=== PATIENT | male | born 1970 ===

== ENCOUNTER 2017-09-28 15:38 | Inpatient (IN) | payer MEDICAID ==
[2017-09-28 15:38] VITALS: BMI 23.8
[2017-09-28] MEDS ORDERED: Sodium Chloride 0.9% 1,000 ML IV STA ×2 (16:55→19:12)
[2017-09-28] MEDS ORDERED: diaZEpam 10 mg/2 ml Inj IVP STA (16:55)
--- NOTE | 2017-09-28 17:04 | ED PDOC ---
HPI: Back Time Seen by Provider: 09/28/17 16:20 Chief Complaint (Nursing): Back Pain Chief Complaint (Provider): Back Pain History Per: Patient History/Exam Limitations: no limitations Onset/Duration Of Symptoms: Days (x9) Current Symptoms Are (Timing): Still Present Additional Complaint(s): Cesar Hatfield is a 47 year old male who presents to the ED complaining of back pain ongoing since last Wednesday. Patient states his father past away last week and he attended the . He states pain was exacerbated after carrying his father's casket. Patient was seen yesterday at [facility] [place] and was treated with valium and motrin but this has not helped. Patient states that ED provider wanted to admit him yesterday at [facility] [place] but he declined. Patient states pain radiates down right leg but he has no bowel or bladder dysfunction. Patient states years ago he was told he had lumbar herniated discs but he has not had chronic issues with his low back. Patient also admits to taking percocet that he had left over from left knee surgery last year but this did not help either. PMD: Ariadna Moreland MD Past Medical History Reviewed: Historical Data, Nursing Documentation, Vital Signs Vital Signs: Last Vital Signs Temp 98.0 F 09/28/17 15:50 Pulse 95 H 09/28/17 15:50 Resp 16 09/28/17 15:50 BP 153/99 H 09/28/17 15:50 Pulse Ox 100 09/28/17 15:50 - Medical History PMH: Back Problems, Depression (no longer), Gastrointestinal Ulcer - Surgical History Surgical History: Endoscopy Other surgeries: left knee surgery - Family History Family History: States: No Known Family Hx - Social History Current smoker - smoking cessation education provided: No Alcohol: None Drugs: Denies - Immunization History Hx Tetanus Toxoid Vaccination: No Hx Influenza Vaccination: No Hx Pneumococcal Vaccination: No - Home Medications Home Medications: Ambulatory Orders Medication Instructions Recorded Hydrocodone/Acetaminophen [Vicodin 1 tab PO QID #20 tab 08/01/15 Es 300 mg-7.5 mg] Acetaminophen [Tylenol 325mg tab] 650 mg PO Q4H PRN #0 tab 09/16/16 Famotidine [Pepcid] 40 mg PO DAILY #7 tablet 09/16/16 Gabapentin [Neurontin] 300 mg PO TID #90 cap 09/16/16 Hydrocortisone 1% Cream [Cortizone 0 gm TOP BID PRN #0 tube 09/16/16 1% Cream] Menthol/Methyl Salicylate [BenGay] 0 gm TOP QID PRN #0 tube 09/16/16 Methylprednisolone [Medrol Dose See Taper PO DAILY #21 mg 09/16/16 Pack (21 tabs)] Naproxen [Anaprox DS] 550 mg PO BID tab 09/16/16 Polyethylene Glycol 3350 [Miralax] 17 gm PO DAILY packet 09/16/16 - Allergies Allergies/Adverse Reactions: Allergies Allergy/AdvReac Type Severity Reaction Status Date / Time No Known Allergies Allergy Verified 05/11/15 13:24 Review of Systems ROS Statement: Except As Marked, All Systems Reviewed And Found Negative Gastrointestinal: Negative for: Vomiting Musculoskeletal: Positive for: Back Pain (Lower, with radiation to right leg) Neurological: Positive for: Numbness (Right leg) Physical Exam - Reviewed Nursing Documentation Reviewed: Yes Vital Signs Reviewed: Yes - Physical Exam Appears: Positive for: Well, Non-toxic, No Acute Distress Head Exam: Positive for: ATRAUMATIC, NORMAL INSPECTION, NORMOCEPHALIC Skin: Positive for: Normal Color. Negative for: Rash Eye Exam: Positive for: Normal appearance Neck: Positive for: Normal, Painless ROM Cardiovascular/Chest: Positive for: Regular Rate, Rhythm Respiratory: Positive for: Normal Breath Sounds Gastrointestinal/Abdominal: Positive for: Soft. Negative for: Tenderness, Distended, Guarding, Rebound Back: Positive for: Muscle Spasm (Diffuse muscle spasms to lower lumbar region) , Other (unable to peform straight leg raise on right or left leg) Extremity: Positive for: Normal ROM Neurologic/Psych: Positive for: Alert, Oriented - Laboratory Results Result Diagrams: 09/28/17 18:22 09/28/17 18:22 - ECG O2 Sat by Pulse Oximetry: 100 (RA) Pulse Ox Interpretation: Normal - Other Rad CT Lumbar spine X-Ray: Read By Radiologist X-Ray Interpretation: no acute finding Medical Decision Making Medical Decision Making: Time: 16:56 Impression: 47 year old male with severe lower back pain Rx history reviewed, no history of narcotic rx filled on [facility] [employer] [facility]. Initial Plan: --CT Lumbar spine w/o contrast --BMP --CBC w/ differential --Sodium Chloride 0.9% 1,000 ml IV --1 mg IV dilaudid --Toradol 30 mg IV --SOLU-Medrol 125 mg IVP --Reevaluation CT: no acute finding 6:40 pm: Patient feels somewhat better after IV medications given. CT was read as normal. Patient tried to get up out of bed and cannot put any weight on right leg, when he tries to move he complains of persistent severe pain. Additional 1 mg IV Dilaudid ordered along with 5 mg oral Valium tablet. Scribe Attestation: Documented by Enmanuel Hough, acting as a scribe for Jennifer Telles PA-C Provider Scribe Attestation: All medical record entries made by the Scribe were at my direction and personally dictated by me. I have reviewed the chart and agree that the record accurately reflects my personal performance of the history, physical exam, medical decision making, and the department course for this patient. I have also personally directed, reviewed, and agree with the discharge instructions and disposition. Disposition - Clinical Impression Clinical Impression: Intractable back pain, Impaired ambulation - Patient ED Disposition Is Patient to be Admitted: Transfer of Care - Disposition Disposition: Transfer of Care Disposition Time: 20:00 Condition: FAIR Forms: BTR (Burmese) Patient Signed Over To: Stefanie Farias Handoff Comments: signed out pending re-evaluation and final disposition Results - Lab Results Lab Results: 09/28/17 09/28/17 18:22 18:22 WBC 6.0 RBC 4.40 Hgb 14.0 Hct 40.5 MCV 92.1 MCH 31.9 H MCHC 34.6 RDW 13.3 Plt Count 260 MPV 6.8 L Neut % (Auto) 70.6 Lymph % (Auto) 21.0 Carbon % (Auto) 5.4 Eos % (Auto) 1.8 Baso % (Auto) 1.2 Neut # 4.2 Lymph # 1.3 Carbon # 0.3 Eos # 0.1 Baso # 0.1 Sodium 143 Potassium 3.8 Chloride 107 Carbon Dioxide 27 Anion Gap 13 BUN 16 Creatinine 1.0 Est GFR ( Amer) > 60 Est GFR (Non-Af Amer) > 60 Random Glucose 94 Calcium 8.8
[2017-09-28] MEDS ORDERED: HYDROmorphone 0.5 mg/0.5 ml ISec IVP STA (17:16)
[2017-09-28] MEDS ORDERED: HYDROmorphone 0.5 mg/0.5 ml ISec ONE (17:18)
[2017-09-28 18:27] LABS: BASO # 0.1 K/uL (0.0-0.2); BASO % 1.2 % (0.0-2.0); EOS # 0.1 K/uL (0.0-0.7); EOS % 1.8 % (0.0-4.0); HEMATOCRIT 40.5 % (35.0-51.0); LYMPH # 1.3 K/uL (1.0-4.3); MEAN CELL VOLUME 92.1 fl (80.0-94.0); MEAN CORPUSCULAR HEMOGLOBIN 31.9 pg (27.0-31.0); MEAN CORPUSCULAR HGB CONC 34.6 g/dL (33.0-37.0); MEAN PLATELET VOLUME 6.8 fl (7.2-11.7); MONO # 0.3 K/uL (0.0-0.8); MONO % 5.4 % (0.0-10.0); NEUT # 4.2 K/uL (1.8-7.0); NEUT % 70.6 % (50.0-75.0); NRBC % 0.2 % (0.0-0.0); RED CELL DISTRIBUTION WIDTH 13.3 % (11.5-14.5)
--- NOTE | 2017-09-28 18:32 | CT ---
CT lumbar spine without IV contrast Indication: Severe low back pain, cannot walk Comparison: None available Technique: Noncontrast axial images of the lumbar spine were provided. Sagittal and coronal reformatted images were generated and reviewed. This CT exam was performed using 1 or more of the falling dose reduction techniques: Automated exposure control, adjustment of the MAA and/or kV according to patient size, and/or use of iterative reconstruction technique. Total exam DLP: 384.21 MGy-cm Findings: Vertebral body heights appear within normal limits. Alignment appears satisfactory. No acute fracture or subluxation identified. Paraspinal soft tissues appear unremarkable. Limited visualization of the intra-abdominal and intrapelvic contents appear unremarkable. Impression: No acute fracture or subluxation identified. If pain persists, suggest MRI for further evaluation.
[2017-09-28 18:50] LABS: BLOOD UREA NITROGEN 16 mg/dl (9-20); CALCIUM 8.8 mg/dL (8.4-10.2); CARBON DIOXIDE 27 mmol/L (22-30); CHLORIDE 107 mmol/L (98-107); GFR AFRICAN-AMERICAN > 60; GLUCOSE,RANDOM 94 mg/dL (75-110); POTASSIUM 3.8 MMOL/L (3.6-5.0); SODIUM 143 mmol/l (132-148)
--- NOTE | 2017-09-28 21:34 | ED PDOC ---
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 Case discussed with Dr. Garcia, Hospitalist on-call, for placement in observation for intractable back pain. Disposition - Clinical Impression Clinical Impression: Intractable back pain, Impaired ambulation - POA Present On Arrival: None - Disposition Disposition: Hospitalized as Observation Patient Disposition Time: 21:45 Condition: FAIR
[2017-09-28] MEDS ORDERED: Oxycodone/Acetaminophen 5/325 mg Tab PO PRN (21:41)
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
[2017-09-29] MEDS: Enoxaparin 40 mg Syringe SC SCH (08:44)
[2017-09-29] MEDS ORDERED: Pneumococcal 23-Valent Vaccine IM ONE (09:00)
[2017-09-29] MEDS ORDERED: Influenza Vaccine 18yr & older 0.5 ML/45 MCG SYR IM ONE (09:00)
--- NOTE | 2017-09-29 16:36 | CP.PCM.PN ---
Subjective - Date & Time of Evaluation Date of Evaluation: 09/29/17 Time of Evaluation: 13:00 - Subjective Subjective: Patient seen and examined bedside. Complaining of severe lower back pain radiating to his right thigh and groin area , unable to stand up , lift his legs against gravity and walk No urinary or bowel incontinence, no saddle paresthesia With decreased power to lower extremities due to pain Objective - Vital Signs/Intake and Output Vital Signs (last 24 hours): Temp Pulse Resp BP Pulse Ox 97.2 F L 76 18 122/78 95 09/29/17 16:32 09/29/17 16:32 09/29/17 16:32 09/29/17 16:32 09/29/17 16:32 - Medications Medications: Current Medications Acetaminophen (Tylenol 325mg Tab) 650 mg PO Q6 PRN PRN Reason: Pain, Mild (1-3) Cyclobenzaprine HCl (Flexeril) 10 mg PO TID PRN PRN Reason: Muscle spasm Last Admin: 09/29/17 08:47 Dose: 10 mg Enoxaparin Sodium (Lovenox) 40 mg SC DAILY ROSALINO PRN Reason: Protocol Last Admin: 09/29/17 08:44 Dose: 40 mg Ketorolac Tromethamine (Toradol) 30 mg IVP Q6 PRN PRN Reason: Pain, severe (8-10) Last Admin: 09/29/17 07:44 Dose: 30 mg Morphine Sulfate (Morphine) 2 mg IVP Q4 PRN PRN Reason: Pain, severe (8-10) Oxycodone/Acetaminophen (Percocet 5/325 Mg Tab) 1 tab PO Q4 PRN PRN Reason: Pain, moderate (4-7) Stop: 10/01/17 21:42 Last Admin: 09/29/17 13:38 Dose: 1 tab - Labs Labs: 09/28/17 18:22 09/28/17 18:22 - Constitutional Appears: Non-toxic, Other (with lower back pain) - Head Exam Head Exam: ATRAUMATIC, NORMAL INSPECTION, NORMOCEPHALIC - Eye Exam Eye Exam: EOMI, Normal appearance, PERRL Pupil Exam: NORMAL ACCOMODATION - ENT Exam ENT Exam: Mucous Membranes Moist, Normal Exam - Neck Exam Neck Exam: Full ROM, Normal Inspection - Respiratory Exam Respiratory Exam: Clear to Ausculation Bilateral, NORMAL BREATHING PATTERN. absent: Rales, Rhonchi, Wheezes - Cardiovascular Exam Cardiovascular Exam: REGULAR RHYTHM, RRR, +S1, +S2. absent: JVD - GI/Abdominal Exam GI & Abdominal Exam: Soft, Normal Bowel Sounds. absent: Distended, Guarding, Tenderness, Rebound - Rectal Exam Rectal Exam: Deferred - Extremities Exam Extremities Exam: Normal Capillary Refill, Normal Inspection. absent: Joint Swelling, Pedal Edema - Back Exam Back Exam: NORMAL INSPECTION - Neurological Exam Neurological Exam: Alert, Awake, CN II-XII Intact, Oriented x3 Additional comments: unable to lift his extremities against gravity, power decreased bilaterally - Psychiatric Exam Psychiatric exam: Normal Affect, Normal Mood - Skin Skin Exam: Dry, Intact, Normal Color, Warm Assessment and Plan - Assessment and Plan (Free Text) Assessment: 47 y/o male with a history of sarcoidosis and herniated discs/sciatica came in with intractable back pain. He states that his back pain started last week when he was walking to his car. Denies any trauma or exertion prior to onset of pain. Pain started getting progressively worse. Later last week he went to [place] for his father's where he had to carry the casket and put it into the hearse, after which pain became significantly worse. Today his pain was so bad that he was unable to ambulate, so he came to the hospital. He denies any bowel/ bladder incontinence or retention, denies fevers, denies acute focal weakness; all his difficulty moving is pain related. Patient denies any history of IVDU. Patient tried to take valium, motrin, and percocet, but none of these helped. No positions appears to help. CT lumbar spine showed no acute pathology Patient with persistent intractable lower back pain unable to ambulate 1. Intractable back pain patient unabl eto ambulate due to espinal Will order MRI lower back and painmanagement consult Continue Flexeril , narcotics for pain control PT consult appreciated . Patient unable to participate due to pain 2. DVT prophylaxis lovenox
--- NOTE | 2017-09-29 18:05 | CARD ---
APPROVED REPORT EKG Measurement Heart [id number] <Conclusion> Normal sinus rhythm Normal ECG
--- NOTE | 2017-09-29 18:22 | MRI ---
PROCEDURE: MR LUMBAR SPINE WITHOUT CONTRAST HISTORY: intractable lower back pain with weakness COMPARISON: CT lumbar spine from 09/28/2017. TECHNIQUE: Multiecho multiplanar sequences were performed through the lumbar spine without the use of intravenous contrast. FINDINGS: There is normal alignment of the lumbar vertebral bodies. Lumbar lordosis is maintained. There is no acute fracture, spondylolysis or spondylolisthesis. Bone marrow signal is within normal limits. The conus medullaris terminates at a normal level and the nerve roots of cauda equina are normal. 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 T12-L1: No disc herniation, spinal canal stenosis or neural foraminal narrowing. L1-2: No disc herniation, spinal canal stenosis or neural foraminal narrowing. L2-3: No disc herniation, spinal canal stenosis or neural foraminal narrowing. L3-4: Wake L4-5: Minimal posterior disc bulge and mild bilateral facet arthropathy without neural foraminal or spinal canal stenosis. L5-S1: Broad-based central disc protrusion indents the ventral thecal sac without spinal canal stenosis. No neural foraminal stenosis. OTHER FINDINGS: The paraspinous soft tissues and imaged portion of the retroperitoneum are within normal limits. IMPRESSION: No acute fracture, spondylolysis or spondylolisthesis. Broad-based central disc protrusion indents the ventral thecal sac without central spinal canal stenosis. No neural foraminal stenosis.
[2017-09-29] MEDS ORDERED: HYDROmorphone 1 mg/ml ISec IVP PRN (19:02)
--- NOTE | 2017-09-29 22:26 | CP.PCM.PN ---
Subjective - Date & Time of Evaluation Date of Evaluation: 09/29/17 Time of Evaluation: 22:23 - Subjective Subjective: reviewed MRI and CT Minimal disc bulge at L5/S1 not surgical case at this time suggest coarse of conservative therapy including PT, pain managment and not- narcotic analgesics. If this fails he should follow up as outpt, but MRI appearance is such that I would doubt surgery would help resolve his condition even if he fails conservative measures Objective - Vital Signs/Intake and Output Vital Signs (last 24 hours): Temp Pulse Resp BP Pulse Ox 97.2 F L 76 18 122/78 95 09/29/17 16:32 09/29/17 16:32 09/29/17 16:32 09/29/17 16:32 09/29/17 16:32 - Medications Medications: Current Medications Acetaminophen (Tylenol 325mg Tab) 650 mg PO Q6 PRN PRN Reason: Pain, Mild (1-3) Cyclobenzaprine HCl (Flexeril) 10 mg PO TID PRN PRN Reason: Muscle spasm Last Admin: 09/29/17 18:27 Dose: 10 mg Enoxaparin Sodium (Lovenox) 40 mg SC DAILY ROSALINO PRN Reason: Protocol Last Admin: 09/29/17 08:44 Dose: 40 mg Hydromorphone HCl (Dilaudid) 1 mg IVP Q4 PRN PRN Reason: Pain, severe (8-10) Last Admin: 09/29/17 21:14 Dose: 1 mg Ketorolac Tromethamine (Toradol) 30 mg IVP Q6 PRN PRN Reason: Pain, severe (8-10) Last Admin: 09/29/17 17:18 Dose: 30 mg Oxycodone/Acetaminophen (Percocet 5/325 Mg Tab) 1 tab PO Q4 PRN PRN Reason: Pain, moderate (4-7) Stop: 10/01/17 21:42 Last Admin: 09/29/17 13:38 Dose: 1 tab - Labs Labs: 09/28/17 18:22 09/28/17 18:22
[2017-09-30] MEDS: Enoxaparin 40 mg Syringe SC SCH (08:03)
--- NOTE | 2017-09-30 09:55 | CP.PCM.PN ---
<Danny Ely - Last Filed: 09/30/17 11:00> Subjective - Date & Time of Evaluation Date of Evaluation: 09/30/17 Time of Evaluation: 09:55 - Subjective Subjective: Hospitalist Progress Note 47 year old male patient PMHx sarcoidosis and herniated discs/sciatica seen at bedside for intractable back pain. Patient complaining of continued lower back pain and sharp/burning pain radiating down his right lower extremity. Patent admits he worked with physical therapy yesterday and had great difficulty moving his right lower extremity 2/2 pain; uses his LLE to compensate. Patient states he is unable to walk. Patient admits to feeling occasional numbness/ tingling to right foot. Patient states medications have not been helping for pain relief except for dilaudid. Denies n/v/f/d/c/sob/cp. Objective - Vital Signs/Intake and Output Vital Signs (last 24 hours): Temp Pulse Resp BP Pulse Ox 97.7 F 58 L 18 124/81 97 09/30/17 08:24 09/30/17 08:24 09/30/17 08:24 09/30/17 08:24 09/30/17 08:24 - Medications Medications: Current Medications Acetaminophen (Tylenol 325mg Tab) 650 mg PO Q6 PRN PRN Reason: Pain, Mild (1-3) Cyclobenzaprine HCl (Flexeril) 10 mg PO TID PRN PRN Reason: Muscle spasm Last Admin: 09/29/17 18:27 Dose: 10 mg Enoxaparin Sodium (Lovenox) 40 mg SC DAILY [facility] PRN Reason: Protocol Last Admin: 09/30/17 08:03 Dose: 40 mg Hydromorphone HCl (Dilaudid) 1 mg IVP Q4 PRN PRN Reason: Pain, severe (8-10) Last Admin: 09/30/17 07:58 Dose: 1 mg Ketorolac Tromethamine (Toradol) 30 mg IVP Q6 PRN PRN Reason: Pain, severe (8-10) Last Admin: 09/29/17 17:18 Dose: 30 mg Oxycodone/Acetaminophen (Percocet 5/325 Mg Tab) 1 tab PO Q4 PRN PRN Reason: Pain, moderate (4-7) Stop: 10/01/17 21:42 Last Admin: 09/29/17 13:38 Dose: 1 tab - Labs Labs: 09/28/17 18:22 09/28/17 18:22 - Constitutional Appears: Well, Non-toxic, Other (severe low back pain) - Head Exam Head Exam: ATRAUMATIC, NORMAL INSPECTION, NORMOCEPHALIC - Eye Exam Eye Exam: EOMI, Normal appearance, PERRL Pupil Exam: NORMAL ACCOMODATION - ENT Exam ENT Exam: Mucous Membranes Moist, Normal Exam, Normal External Ear Exam - Neck Exam Neck Exam: Full ROM, Normal Inspection. absent: Tenderness - Respiratory Exam Respiratory Exam: Clear to Ausculation Bilateral, NORMAL BREATHING PATTERN. absent: Rales, Rhonchi, Wheezes - Cardiovascular Exam Cardiovascular Exam: REGULAR RHYTHM, +S1, +S2 - GI/Abdominal Exam GI & Abdominal Exam: Soft, Normal Bowel Sounds. absent: Firm, Tenderness - Rectal Exam Rectal Exam: Deferred - Extremities Exam Extremities Exam: Tenderness Additional comments: RLE muscle strength 3/5 - Back Exam Back Exam: absent: Full ROM - Neurological Exam Neurological Exam: Alert, Awake, Oriented x3 Neuro motor strength exam: Right Lower Extremity: 3 (Movement possible against gravity but not against resistance) - Psychiatric Exam Psychiatric exam: Normal Affect, Normal Mood - Skin Skin Exam: Dry, Intact, Normal Color, Warm Assessment and Plan - Assessment and Plan (Free Text) Assessment: 47 y/o male with a history of sarcoidosis and herniated discs/sciatica came in with intractable back pain. He states that his back pain started last week when he was walking to his car. Denies any trauma or exertion prior to onset of pain. Pain started getting progressively worse. Later last week he went to [place] for his father's where he had to carry the casket and put it into the hearse, after which pain became significantly worse. Today his pain was so bad that he was unable to ambulate, so he came to the hospital. He denies any bowel/ bladder incontinence or retention, denies fevers, denies acute focal weakness; all his difficulty moving is pain related. Patient denies any history of IVDU. Patient tried to take valium, motrin, and percocet, but none of these helped. No positions appears to help. CT lumbar spine showed no acute pathology Patient with persistent intractable lower back pain unable to ambulate 1. Intractable back pain patient unable to ambulate due to pain Lumbar spin CT negative for acute fracture or subluxation Lumbar spine MRI report reveals broad-based central disc protrusion indents the ventral thecal sac without central spinal canal stenosis Pain management consulted, recs appreciated Neurosurgery consulted, recommend conservative therapy; no surgical intervention at this time Continue Flexeril , narcotics for pain control Continue PT/OT. Physical therapy recommends discharge to TCU for continuation of rehabilitation 2. DVT prophylaxis lovenox <Everardo Abebe - Last Filed: 09/30/17 13:42> Objective - Vital Signs/Intake and Output Vital Signs (last 24 hours): Temp Pulse Resp BP Pulse Ox 97.7 F 58 L 18 124/81 97 09/30/17 08:24 09/30/17 08:24 09/30/17 08:24 09/30/17 08:24 09/30/17 08:24 - Medications Medications: Current Medications Acetaminophen (Tylenol 325mg Tab) 650 mg PO Q6 PRN PRN Reason: Pain, Mild (1-3) Cyclobenzaprine HCl (Flexeril) 10 mg PO TID PRN PRN Reason: Muscle spasm Last Admin: 09/29/17 18:27 Dose: 10 mg Enoxaparin Sodium (Lovenox) 40 mg SC DAILY [facility] PRN Reason: Protocol Last Admin: 09/30/17 08:03 Dose: 40 mg Gabapentin (Neurontin) 300 mg PO BID [facility] Last Admin: 09/30/17 11:36 Dose: 300 mg Hydromorphone HCl (Dilaudid 0.2 Mg/Ml Calibration Specialist) 6 mg IV CONT PRN; Protocol PRN Reason: Pain, severe (8-10) Last Admin: 09/30/17 13:01 Dose: 6 mg Ketorolac Tromethamine (Toradol) 30 mg IVP Q6 PRN PRN Reason: Pain, severe (8-10) Last Admin: 09/29/17 17:18 Dose: 30 mg Oxycodone/Acetaminophen (Percocet 5/325 Mg Tab) 1 tab PO Q4 PRN PRN Reason: Pain, moderate (4-7) Stop: 10/01/17 21:42 Last Admin: 09/29/17 13:38 Dose: 1 tab Polyethylene Glycol (Miralax) 17 gm PO Q6H PRN PRN Reason: Constipation Last Admin: 09/30/17 11:36 Dose: 17 gm - Labs Labs: 09/28/17 18:22 09/28/17 18:22 Assessment and Plan - Assessment and Plan (Free Text) Assessment: ATTENDING ATTESTATION: Patient seen and examined at bedside. I fully agree with the findings as documented by the resident. I would like to add that the patient was seen by pain management who at this time recommends Dilaudid SKEIN WINDING OPERATOR pump which was ordered. other narcotics to be discontinued. Continue Flexeril. Add Gabapentin 300 mg po BID. Patient unable to ambulate at this time due to lower back pain. Physical therapy ongoing. Neurosurgery consulted- recommends conservative therapy; no surgical intervention at this time.
--- NOTE | 2017-09-30 10:35 | CP.PCM.CON ---
History of Present Illness - History of Present Illness History of Present Illness: 47y M with hx of depression felt onset of back pain when he walked to his car on Sep 16 2017. His pain is VAS 7/10, sharp and intemittent pain going from the back to the right foot. Pain is worse with bending and lifting and better with rest. He states he had no back pain prior to this event. He denies urinary incontinence. Primary team requesting assistance with pain management. Dilaudid has helped him control his pain during this hospitalization. Past Patient History - Past Medical History & Family History Past Medical History?: Yes - Past Social History Smoking Status: Light Smoker < 10 Cigarettes Daily - CARDIAC Hx Cardiac Disorders: No - PULMONARY Hx Respiratory Disorders: Yes (sarcoidosis asymptomatic) - NEUROLOGICAL Hx Neurological Disorder: No - HEENT Hx HEENT Problems: No - RENAL Hx Chronic Kidney Disease: No - ENDOCRINE/METABOLIC Hx Endocrine Disorders: No - HEMATOLOGICAL/ONCOLOGICAL Hx Blood Disorders: No - INTEGUMENTARY Hx Dermatological Problems: No - MUSCULOSKELETAL/RHEUMATOLOGICAL Hx Musculoskeletal Disorders: Yes Hx Falls: Yes Hx Fractures: Yes (left patella) - GASTROINTESTINAL Hx Gastrointestinal Disorders: No - GENITOURINARY/GYNECOLOGICAL Hx Genitourinary Disorders: Yes - PSYCHIATRIC Hx Psychophysiologic Disorder: Yes Hx Depression: Yes (no longer) Hx Substance Use: No - SURGICAL HISTORY Hx Surgeries: Yes Hx Orthopedic Surgery: Yes (left knee) - ANESTHESIA Hx Anesthesia: Yes Hx Anesthesia Reactions: No Hx Malignant Hyperthermia: No Has any member of the family had a problem w/ anesthesia?: No Meds Allergies/Adverse Reactions: Allergies Allergy/AdvReac Type Severity Reaction Status Date / Time No Known Allergies Allergy Verified 05/11/15 13:24 - Medications Medications: Current Medications Acetaminophen (Tylenol 325mg Tab) 650 mg PO Q6 PRN PRN Reason: Pain, Mild (1-3) Cyclobenzaprine HCl (Flexeril) 10 mg PO TID PRN PRN Reason: Muscle spasm Last Admin: 09/29/17 18:27 Dose: 10 mg Enoxaparin Sodium (Lovenox) 40 mg SC DAILY [facility] PRN Reason: Protocol Last Admin: 09/30/17 08:03 Dose: 40 mg Hydromorphone HCl (Dilaudid) 1 mg IVP Q4 PRN PRN Reason: Pain, severe (8-10) Last Admin: 09/30/17 07:58 Dose: 1 mg Ketorolac Tromethamine (Toradol) 30 mg IVP Q6 PRN PRN Reason: Pain, severe (8-10) Last Admin: 09/29/17 17:18 Dose: 30 mg Oxycodone/Acetaminophen (Percocet 5/325 Mg Tab) 1 tab PO Q4 PRN PRN Reason: Pain, moderate (4-7) Stop: 10/01/17 21:42 Last Admin: 09/29/17 13:38 Dose: 1 tab Physical Exam - Constitutional Appears: No Acute Distress - Back Exam Additional comments: limited ROM mild lumbar pvb tenderness +SLR RLE at 55 degrees. negative NILE - Neurological Exam Neurological exam: Abnormal Gait Additional comments: DP flex 5/5 bilateral LE, sensation intact Results - Vital Signs Recent Vital Signs: Last Vital Signs Temp 97.7 F 09/30/17 08:24 Pulse 58 L 09/30/17 08:24 Resp 18 09/30/17 08:24 BP 124/81 09/30/17 08:24 Pulse Ox 97 09/30/17 08:24 - Labs Result Diagrams: 09/28/17 18:22 09/28/17 18:22 Assessment & Plan - Assessment and Plan (Free Text) Assessment: 1. 47yM with acute back pain Plan: 1. PT 2. Spine consult 3. recommend Dilaudid PUBLIC SPEAKING INSTRUCTOR
[2017-09-30] MEDS: POLYETHYLENE GLYCOL 3350 17 GM/Dose PACKET PO PRN (11:36)
[2017-10-01] MEDS: Enoxaparin 40 mg Syringe SC SCH (08:48)
--- NOTE | 2017-10-01 11:46 | CP.PCM.PN ---
<Danny Ely - Last Filed: 10/01/17 14:47> Subjective - Date & Time of Evaluation Date of Evaluation: 10/01/17 Time of Evaluation: 11:34 - Subjective Subjective: Hospitalist Progress Note 47 year old male patient PMHx sarcoidosis and herniated discs/sciatica seen at bedside for intractable back pain. Patient denies any acute events overnight. Patient reports continued pain to lower back radiating down through right lower extremity and right side of groin. Patient admits the PLATINUM SMITH pump diminishes pain while he is in bed and allows him to sleep through the night, but is still unable to actively move his RLE without distress. Patient states he has had similar episodes of low back pain in the past but never this severe; believes this started on the day of his father's when he felt a "pop" in his lower back as he was moving his father's casket. Patient states he has trouble getting OOB to commode; denies any urinary or bowel incontinence. Patient admits to numbness/burning/tingling radiating down RLE and around right buttocks. Denies n/v/f/d/c/sob/cp. Objective - Vital Signs/Intake and Output Vital Signs (last 24 hours): Temp Pulse Resp BP Pulse Ox 98.5 F 82 18 150/98 H 95 10/01/17 08:37 10/01/17 08:37 10/01/17 08:37 10/01/17 08:37 10/01/17 08:37 - Medications Medications: Current Medications Acetaminophen (Tylenol 325mg Tab) 650 mg PO Q6 PRN PRN Reason: Pain, Mild (1-3) Cyclobenzaprine HCl (Flexeril) 10 mg PO TID PRN PRN Reason: Muscle spasm Last Admin: 09/29/17 18:27 Dose: 10 mg Enoxaparin Sodium (Lovenox) 40 mg SC DAILY [facility] PRN Reason: Protocol Last Admin: 10/01/17 08:48 Dose: 40 mg Gabapentin (Neurontin) 300 mg PO BID [facility] Last Admin: 10/01/17 08:49 Dose: 300 mg Ketorolac Tromethamine (Toradol) 30 mg IVP Q6 PRN PRN Reason: Pain, severe (8-10) Last Admin: 09/29/17 17:18 Dose: 30 mg Oxycodone/Acetaminophen (Percocet 5/325 Mg Tab) 1 tab PO Q4 PRN PRN Reason: Pain, moderate (4-7) Stop: 10/01/17 21:42 Last Admin: 09/29/17 13:38 Dose: 1 tab Polyethylene Glycol (Miralax) 17 gm PO Q6H PRN PRN Reason: Constipation Last Admin: 09/30/17 11:36 Dose: 17 gm - Labs Labs: 09/28/17 18:22 09/28/17 18:22 - Constitutional Appears: Well, Non-toxic, No Acute Distress - Head Exam Head Exam: ATRAUMATIC, NORMAL INSPECTION, NORMOCEPHALIC - Eye Exam Eye Exam: EOMI, Normal appearance, PERRL Pupil Exam: NORMAL ACCOMODATION. absent: Irregular - ENT Exam ENT Exam: Mucous Membranes Moist, Normal Exam, Normal External Ear Exam - Neck Exam Neck Exam: Full ROM, Normal Inspection. absent: Tenderness - Respiratory Exam Respiratory Exam: Clear to Ausculation Bilateral, NORMAL BREATHING PATTERN. absent: Rales, Rhonchi, Wheezes - Cardiovascular Exam Cardiovascular Exam: REGULAR RHYTHM, +S1, +S2. absent: Diastolic murmur, Murmur - GI/Abdominal Exam GI & Abdominal Exam: Soft, Normal Bowel Sounds. absent: Guarding, Tenderness - Rectal Exam Rectal Exam: Deferred - Extremities Exam Extremities Exam: Normal Capillary Refill, Pedal Edema. absent: Tenderness Additional comments: Bilateral lower extremity temperature gradient warm to cool. Capillary fill time to digits WNL x5 b/l - Back Exam Back Exam: NORMAL INSPECTION - Neurological Exam Neurological Exam: Alert, Awake, CN II-XII Intact, Oriented x3 Neuro motor strength exam: Left Upper Extremity: 5, Right Upper Extremity: 5, Left Lower Extremity: 2/1, Right Lower Extremity: 4 (Movement possible against some resistance) - Psychiatric Exam Psychiatric exam: Normal Affect, Normal Mood - Skin Skin Exam: Dry, Intact, Normal Color Assessment and Plan - Assessment and Plan (Free Text) Assessment: 47 y/o male with a history of sarcoidosis and herniated discs/sciatica came in with intractable back pain. He states that his back pain started last week when he was walking to his car. Denies any trauma or exertion prior to onset of pain. Pain started getting progressively worse. Later last week he went to [place] for his father's where he had to carry the casket and put it into the hearse, after which pain became significantly worse. Today his pain was so bad that he was unable to ambulate, so he came to the hospital. He denies any bowel/ bladder incontinence or retention, denies fevers, denies acute focal weakness; all his difficulty moving is pain related. Patient denies any history of IVDU. Patient tried to take valium, motrin, and percocet, but none of these helped. No positions appears to help. CT lumbar spine showed no acute pathology Patient with persistent intractable lower back pain unable to ambulate 1. Intractable back pain Patient unable to ambulate due to pain Lumbar spin CT negative for acute fracture or subluxation Lumbar spine MRI report reveals broad-based central disc protrusion indents the ventral thecal sac without central spinal canal stenosis Pain management consulted, recommend Dilaudid PLATINUM SMITH pump and Gabapentin 300 mg PO BID Neurosurgery consulted, recommend conservative therapy; no surgical intervention at this time Continue Flexeril Bengay TOP QID prn Continue PT/OT. Physical therapy recommends discharge to TCU for continuation of rehabilitation 2. DVT prophylaxis lovenox <Mayra Gillette - Last Filed: 10/01/17 15:18> Objective - Vital Signs/Intake and Output Vital Signs (last 24 hours): Temp Pulse Resp BP Pulse Ox 98.5 F 82 14 150/98 H 95 10/01/17 08:37 10/01/17 08:37 10/01/17 10:00 10/01/17 08:37 10/01/17 08:37 - Medications Medications: Current Medications Acetaminophen (Tylenol 325mg Tab) 650 mg PO Q6 PRN PRN Reason: Pain, Mild (1-3) Camphor/Menthol (Bengay) 1 applic TOP QID PRN PRN Reason: Pain, Mild (1-3) Cyclobenzaprine HCl (Flexeril) 10 mg PO TID [facility] Last Admin: 10/01/17 13:40 Dose: 10 mg Enoxaparin Sodium (Lovenox) 40 mg SC DAILY [facility] PRN Reason: Protocol Last Admin: 10/01/17 08:48 Dose: 40 mg Gabapentin (Neurontin) 300 mg PO BID [facility] Last Admin: 10/01/17 08:49 Dose: 300 mg Ketorolac Tromethamine (Toradol) 30 mg IVP Q6 PRN PRN Reason: Pain, severe (8-10) Last Admin: 09/29/17 17:18 Dose: 30 mg Oxycodone/Acetaminophen (Percocet 5/325 Mg Tab) 1 tab PO Q4 PRN PRN Reason: Pain, moderate (4-7) Stop: 10/01/17 21:42 Last Admin: 09/29/17 13:38 Dose: 1 tab Polyethylene Glycol (Miralax) 17 gm PO Q6H PRN PRN Reason: Constipation Last Admin: 09/30/17 11:36 Dose: 17 gm - Labs Labs: 09/28/17 18:22 09/28/17 18:22 Attending/Attestation - Attestation I have personally seen and examined this patient.: Yes I have fully participated in the care of the patient.: Yes I have reviewed all pertinent clinical information, including history, physical exam and plan: Yes
[2017-10-01] MEDS: POLYETHYLENE GLYCOL 3350 17 GM/Dose PACKET PO PRN (21:47)
--- NOTE | 2017-10-02 08:08 | CP.PCM.PN ---
Subjective - Date & Time of Evaluation Date of Evaluation: 10/02/17 Time of Evaluation: 08:08 - Subjective Subjective: this is a 47-year-old male seen and examined at bedside for intractable sciatica pain requiring IV pain medications. He is mildly improved today after some OMT therapy, however continues to require IV pain medications. Patient is hemodynamically stable and in no acute distress. Objective - Vital Signs/Intake and Output Vital Signs (last 24 hours): Temp Pulse Resp BP Pulse Ox 98.1 F 76 20 130/87 96 10/02/17 07:51 10/02/17 07:51 10/02/17 07:51 10/02/17 07:51 10/02/17 07:51 Physical exam: Constitutional- cooperative, awake, alert. Head- NCAT, PERRL Eye- PERRL, normal accommodation ENT- normal exam, MMM. Neck- normal inspection, supple, no JVD Respiratory- CTAB, no wheezes rales rhonchi Cardiovascular- RRR, +S1, +S2 no MRG GI/Abdominal- normal bowel sounds, soft, no mass, no hsm Skin- warm, dry Extremities Exam- normal capillary refill, normal inspection. Extreme tenderness inright gluteal area eliciting sciatica pain. Neurological Exam- alert, unable to ambulate steadily. Psych- normal mood, normal affect - Medications Medications: Current Medications Acetaminophen (Tylenol 325mg Tab) 650 mg PO Q6 PRN PRN Reason: Pain, Mild (1-3) Camphor/Menthol (Bengay) 1 applic TOP QID PRN PRN Reason: Pain, Mild (1-3) Cyclobenzaprine HCl (Flexeril) 10 mg PO 0500,1300,2100 [facility] Last Admin: 10/02/17 05:35 Dose: 10 mg Enoxaparin Sodium (Lovenox) 40 mg SC DAILY [facility] PRN Reason: Protocol Last Admin: 10/01/17 08:48 Dose: 40 mg Gabapentin (Neurontin) 300 mg PO BID [facility] Last Admin: 10/01/17 16:59 Dose: 300 mg Hydromorphone HCl (Dilaudid 0.2 Mg/Ml Physics Faculty Member) 6 mg IV PRN PRN; Protocol PRN Reason: Pain, moderate (4-7) Ketorolac Tromethamine (Toradol) 30 mg IVP Q6 PRN PRN Reason: Pain, severe (8-10) Last Admin: 09/29/17 17:18 Dose: 30 mg Polyethylene Glycol (Miralax) 17 gm PO Q6H PRN PRN Reason: Constipation Last Admin: 10/01/17 21:47 Dose: 17 gm - Labs Labs: 09/28/17 18:22 09/28/17 18:22 Assessment and Plan - Assessment and Plan (Free Text) Plan: 47 y/o male with a history of sarcoidosis and herniated discs/sciatica came in with intractable back pain. He states that his back pain started last week when he was walking to his car. Denies any trauma or exertion prior to onset of pain. Pain started getting progressively worse. Later last week he went to [place] for his father's where he had to carry the casket and put it into the hearse, after which pain became significantly worse. Today his pain was so bad that he was unable to ambulate, so he came to the hospital. He denies any bowel/ bladder incontinence or retention, denies fevers, denies acute focal weakness; all his difficulty moving is pain related. Patient denies any history of IVDU. Patient tried to take valium, motrin, and percocet, but none of these helped. No positions appears to help. CT lumbar spine showed no acute pathology Patient with persistent intractable lower back pain unable to ambulate 1. Intractable back pain Patient unable to ambulate due to pain appears to be sciatica pain. Patient responded mildly to OMT treatment with this provider. We will attempt another session today. Patient pain is mildly improved today. Will continue to control pain. Lumbar spin CT negative for acute fracture or subluxation Lumbar spine MRI report reveals broad-based central disc protrusion indents the ventral thecal sac without central spinal canal stenosis Pain management consulted, recommend Dilaudid DRY DRUG WORKER pump and Gabapentin 300 mg PO BID Neurosurgery consulted, recommend conservative therapy; no surgical intervention at this time Continue Flexeril Bengay TOP QID prn Continue PT/OT. Physical therapy recommends discharge to TCU for continuation of rehabilitation 2. DVT prophylaxis lovenox
[2017-10-02] MEDS: Enoxaparin 40 mg Syringe SC SCH (09:03)
[2017-10-03] MEDS: Menthol/Methyl Salicylate Oinment TOP PRN ×2 (09:04→16:40)
[2017-10-03] MEDS: POLYETHYLENE GLYCOL 3350 17 GM/Dose PACKET PO PRN (09:05)
--- NOTE | 2017-10-03 10:41 | CP.PCM.PN ---
Subjective - Date & Time of Evaluation Date of Evaluation: 10/03/17 Time of Evaluation: 10:41 - Subjective Subjective: patient seen and examined at bedside for intractable back pain requiring IV narcotics. Patient is improved today, states he was able to stand for a few minutes today and last night. We will attempt to wean down on the ACQUISITION ADVISOR and transitioned over to IV when necessary medications at the recommendation of pain management. Hemodynamically stable no acute distress. Objective - Vital Signs/Intake and Output Vital Signs (last 24 hours): Temp Pulse Resp BP Pulse Ox 97.3 F L 96 H 20 155/88 H 94 L 10/03/17 07:45 10/03/17 07:45 10/03/17 07:45 10/03/17 07:45 10/03/17 07:45 Intake and Output: Physical exam: Constitutional- cooperative, awake, alert. Head- NCAT, PERRL Eye- PERRL, normal accommodation ENT- normal exam, MMM. Neck- normal inspection, supple, no JVD Respiratory- CTAB, no wheezes rales rhonchi Cardiovascular- RRR, +S1, +S2 no MRG GI/Abdominal- normal bowel sounds, soft, no mass, no hsm Skin- warm, dry Extremities Exam- normal capillary refill, normal inspection Neurological Exam- alert, able to stand Psych- normal mood, normal affect - Medications Medications: Current Medications Acetaminophen (Tylenol 325mg Tab) 650 mg PO Q6 PRN PRN Reason: Pain, Mild (1-3) Camphor/Menthol (Bengay) 1 applic TOP QID PRN PRN Reason: Pain, Mild (1-3) Last Admin: 10/03/17 09:04 Dose: 1 applic Cyclobenzaprine HCl (Flexeril) 10 mg PO 0500,1300,2100 [facility] Last Admin: 10/03/17 05:19 Dose: 10 mg Gabapentin (Neurontin) 300 mg PO BID [facility] Last Admin: 10/03/17 09:05 Dose: 300 mg Hydromorphone HCl (Dilaudid 0.2 Mg/Ml [employer]) 6 mg IV PRN PRN; Protocol PRN Reason: pain management Last Admin: 10/02/17 20:23 Dose: 6 mg Polyethylene Glycol (Miralax) 17 gm PO Q6H PRN PRN Reason: Constipation Last Admin: 10/03/17 09:05 Dose: 17 gm - Labs Labs: 09/28/17 18:22 09/28/17 18:22 Assessment and Plan - Assessment and Plan (Free Text) Plan: 47 y/o male with a history of sarcoidosis and herniated discs/sciatica came in with intractable back pain. He states that his back pain started last week when he was walking to his car. Denies any trauma or exertion prior to onset of pain. Pain started getting progressively worse. Later last week he went to [place] for his father's where he had to carry the casket and put it into the hearse, after which pain became significantly worse. Today his pain was so bad that he was unable to ambulate, so he came to the hospital. He denies any bowel/ bladder incontinence or retention, denies fevers, denies acute focal weakness; all his difficulty moving is pain related. Patient denies any history of IVDU. Patient tried to take valium, motrin, and percocet, but none of these helped. No positions appears to help. CT lumbar spine showed no acute pathology Patient with persistent intractable lower back pain unable to ambulate 1. Intractable back pain Patient unable to ambulate due to pain appears to be sciatica pain. Patient responded mildly to OMT treatment with this provider. We will attempt another session today again. Patient pain is mildly improved today. Will continue to control pain. we'll consider titrating off ACQUISITION ADVISOR to when necessary IV medication. Will reach out to pain management for further recommendations Lumbar spin CT negative for acute fracture or subluxation Lumbar spine MRI report reveals broad-based central disc protrusion indents the ventral thecal sac without central spinal canal stenosis Pain management consulted, recommend Dilaudid ACQUISITION ADVISOR pump and Gabapentin 300 mg PO BID Neurosurgery consulted, recommend conservative therapy; no surgical intervention at this time Continue Flexeril Bengay TOP QID prn Continue PT/OT. Physical therapy recommends discharge to TCU for continuation of rehabilitation 2. DVT prophylaxis lovenox
[2017-10-03] MEDS: HYDROmorphone 0.5 mg/0.5 ml ISec IVP PRN ×2 (14:53→19:49)
[2017-10-03] MEDS: Oxycodone/Acetaminophen 5/325 mg Tab PO PRN ×2 (17:16→22:17)
[2017-10-04] MEDS: HYDROmorphone 0.5 mg/0.5 ml ISec IVP PRN ×2 (01:31→08:34)
[2017-10-04] MEDS: Oxycodone/Acetaminophen 5/325 mg Tab PO PRN ×3 (05:07→20:43)
--- NOTE | 2017-10-04 13:06 | CP.PCM.PN ---
<Danny Ely - Last Filed: 10/04/17 15:00> Subjective - Date & Time of Evaluation Date of Evaluation: 10/04/17 Time of Evaluation: 10:00 - Subjective Subjective: Hospitalist Progress Note 47 year old male patient seen and examined at bedside for intractable back pain requiring IV narcotics. Patient asleep during time of visit, hemodynamically stable and NAD. Patient relates his pain is improving; states he was able to walk to the bathroom last night but still needed 2 people to help him. Patient has been weaned off LINE PRODUCER pump and is tolerating IV and oral medications. Denies n /v/f/d/c/sob/cp. Objective - Vital Signs/Intake and Output Vital Signs (last 24 hours): Temp Pulse Resp BP Pulse Ox 97.7 F 106 H 20 157/93 H 92 L 10/04/17 08:47 10/04/17 08:47 10/04/17 08:47 10/04/17 08:47 10/04/17 08:47 - Medications Medications: Current Medications Acetaminophen (Tylenol 325mg Tab) 650 mg PO Q6 PRN PRN Reason: Pain, Mild (1-3) Camphor/Menthol (Bengay) 1 applic TOP QID PRN PRN Reason: Pain, Mild (1-3) Last Admin: 10/03/17 16:40 Dose: 1 applic Cyclobenzaprine HCl (Flexeril) 10 mg PO 0500,1300,2100 [facility] Last Admin: 10/04/17 05:07 Dose: 10 mg Gabapentin (Neurontin) 300 mg PO BID [facility] Last Admin: 10/04/17 08:43 Dose: 300 mg Hydromorphone HCl (Dilaudid) 1 mg IVP Q4 PRN PRN Reason: Pain, severe (8-10) Last Admin: 10/04/17 08:34 Dose: 1 mg Lidocaine (Lidoderm) 1 ea TD DAILY [facility] Oxycodone/Acetaminophen (Percocet 5/325 Mg Tab) 2 tab PO Q4 PRN PRN Reason: Pain, moderate (4-7) Stop: 10/06/17 12:33 Last Admin: 10/04/17 05:07 Dose: 2 tab Polyethylene Glycol (Miralax) 17 gm PO Q6H PRN PRN Reason: Constipation Last Admin: 10/03/17 09:05 Dose: 17 gm - Labs Labs: 09/28/17 18:22 09/28/17 18:22 - Constitutional Appears: Well, Non-toxic, No Acute Distress - Head Exam Head Exam: ATRAUMATIC, NORMAL INSPECTION, NORMOCEPHALIC - Eye Exam Eye Exam: EOMI, Normal appearance, PERRL Pupil Exam: NORMAL ACCOMODATION - ENT Exam ENT Exam: Mucous Membranes Moist, Normal Exam, Normal External Ear Exam - Neck Exam Neck Exam: Full ROM, Normal Inspection. absent: Tenderness - Respiratory Exam Respiratory Exam: Clear to Ausculation Bilateral, NORMAL BREATHING PATTERN. absent: Rales, Rhonchi, Wheezes - Cardiovascular Exam Cardiovascular Exam: REGULAR RHYTHM, +S1, +S2. absent: JVD, Rubs, Murmur - GI/Abdominal Exam GI & Abdominal Exam: Soft, Normal Bowel Sounds. absent: Tenderness - Rectal Exam Rectal Exam: Deferred - Extremities Exam Extremities Exam: Normal Capillary Refill, Normal Inspection. absent: Tenderness Additional comments: Extreme tenderness in right gluteal area eliciting sciatica pain. Bilateral lower extremity temperature gradient warm to cool. Capillary fill time to digits WNL x5 b/l - Neurological Exam Neurological Exam: Abnormal Gait (unable to ambulate steadily), Alert, Awake, Oriented x3 - Psychiatric Exam Psychiatric exam: Normal Affect, Normal Mood - Skin Skin Exam: Dry, Intact, Normal Color Assessment and Plan - Assessment and Plan (Free Text) Assessment: 47 y/o male with PMHx sarcoidosis and herniated discs/sciatica came in with intractable back pain. He states that his back pain started last week when he was walking to his car. Denies any trauma or exertion prior to onset of pain. Pain started getting progressively worse. Later last week he went to [place] for his father's where he had to carry the casket and put it into the hearse, after which pain became significantly worse. Today his pain was so bad that he was unable to ambulate, so he came to the hospital. He denies any bowel/bladder incontinence or retention, denies fevers, denies acute focal weakness; all his difficulty moving is pain related. Patient denies any history of IVDU. Patient tried to take valium, motrin, and percocet, but none of these helped. No positions appears to help. CT lumbar spine showed no acute pathology Patient with persistent intractable lower back pain unable to ambulate 1. Intractable back pain Patient unable to ambulate due to pain, appears to be 2/2 sciatica Patient responded mildly to OMT treatment with this provider. Patient pain is improving. D/C LINE PRODUCER pump Continue IV and oral pain mgmt -Decrease Dilaudid from 1mg to 0.5mg due to pt somnolence -Percocet 2 tab PO -Tylenol 650mg PO Continue Flexeril Bengay TOP QID prn Lumbar spin CT negative for acute fracture or subluxation Lumbar spine MRI report reveals broad-based central disc protrusion indents the ventral thecal sac without central spinal canal stenosis Pain management consulted, recommend Gabapentin 300 mg PO BID Neurosurgery consulted, recommend conservative therapy; no surgical intervention at this time Physiatry consulted for sciatica pain, recs appreciated Continue PT/OT 2. DVT prophylaxis lovenox <Cary Dee - Last Filed: 10/05/17 11:37> Objective - Vital Signs/Intake and Output Vital Signs (last 24 hours): Temp Pulse Resp BP Pulse Ox 97.5 F L 112 H 20 119/85 93 L 10/05/17 07:52 10/05/17 07:52 10/05/17 07:52 10/05/17 08:46 10/05/17 07:52 - Medications Medications: Current Medications Acetaminophen (Tylenol 325mg Tab) 650 mg PO Q6 PRN PRN Reason: Pain, Mild (1-3) Camphor/Menthol (Bengay) 1 applic TOP QID PRN PRN Reason: Pain, Mild (1-3) Last Admin: 10/03/17 16:40 Dose: 1 applic Cyclobenzaprine HCl (Flexeril) 10 mg PO 0500,1300,2100 [facility] Last Admin: 10/05/17 05:47 Dose: 10 mg Docusate Sodium (Colace) 100 mg PO BID [facility] Last Admin: 10/05/17 08:44 Dose: 100 mg Enoxaparin Sodium (Lovenox) 40 mg SC DAILY [facility] PRN Reason: Protocol Gabapentin (Neurontin) 300 mg PO BID [facility] Last Admin: 10/05/17 08:44 Dose: 300 mg Hydromorphone HCl (Dilaudid) 0.5 mg IVP Q4 PRN PRN Reason: Pain, severe (8-10) Last Admin: 10/05/17 08:47 Dose: 0.5 mg Lidocaine (Lidoderm) 1 ea TD DAILY [facility] Last Admin: 10/04/17 13:50 Dose: 1 ea Lisinopril (Zestril) 5 mg PO DAILY [facility] Last Admin: 10/05/17 08:46 Dose: 5 mg Oxycodone/Acetaminophen (Percocet 5/325 Mg Tab) 2 tab PO Q4 PRN PRN Reason: Pain, moderate (4-7) Stop: 10/06/17 12:33 Last Admin: 10/05/17 05:47 Dose: 2 tab Polyethylene Glycol (Miralax) 17 gm PO Q6H PRN PRN Reason: Constipation Last Admin: 10/03/17 09:05 Dose: 17 gm Prednisone (Prednisone Tab) 60 mg PO Q24H [facility] Stop: 10/05/17 17:31 Last Admin: 10/04/17 18:37 Dose: 60 mg Prednisone (Prednisone Tab) 50 mg PO Q24H [facility] Stop: 10/07/17 17:23 Prednisone (Prednisone Tab) 40 mg PO Q24H [facility] Stop: 10/09/17 17:23 Prednisone (Prednisone Tab) 30 mg PO Q24H [facility] Stop: 10/11/17 17:23 Prednisone (Prednisone Tab) 20 mg PO Q24H [facility] Stop: 10/13/17 17:23 Prednisone (Prednisone Tab) 10 mg PO Q24H [facility] Stop: 10/15/17 17:23 - Labs Labs: 10/05/17 09:30 09/28/17 18:22 Attending/Attestation - Attestation I have personally seen and examined this patient.: Yes I have fully participated in the care of the patient.: Yes I have reviewed all pertinent clinical information, including history, physical exam and plan: Yes Notes (Text): 10/05/17 11:37 Seen, examined, and discussed with Resident Dr. Ely. Agree with findings and plan as above.
[2017-10-04] MEDS: Lidocaine 5% Patch TD SCH (13:50)
--- NOTE | 2017-10-04 17:26 | CP.PCM.CON ---
History of Present Illness - History of Present Illness History of Present Illness: Dr Valencia PMR consultation on Cesar Hatfield, born 1970 who has been admitted with intractable LBP radiating into the right LE. Imaging showed a disc abnormality but no clear impingement noted. Seen by neurosurgery and not felt to be a surgical candidate. On IV dilaudid which is not helping his pain or function. I will get him on an oral steroid taper and give an initial injection of Toradol 60mg. He will need TCU and hopefully begin to function better after this plan. Look to taper off narcotics MIGUEL No focal sensory or motor weakness that would be neurological. There is pain inhibited weakness + constipation. given colace Past Patient History - Past Medical History & Family History Past Medical History?: Yes - Past Social History Smoking Status: Light Smoker < 10 Cigarettes Daily - CARDIAC Hx Cardiac Disorders: No - PULMONARY Hx Respiratory Disorders: Yes (sarcoidosis asymptomatic) - NEUROLOGICAL Hx Neurological Disorder: No - HEENT Hx HEENT Problems: No - RENAL Hx Chronic Kidney Disease: No - ENDOCRINE/METABOLIC Hx Endocrine Disorders: No - HEMATOLOGICAL/ONCOLOGICAL Hx Blood Disorders: No - INTEGUMENTARY Hx Dermatological Problems: No - MUSCULOSKELETAL/RHEUMATOLOGICAL Hx Musculoskeletal Disorders: Yes Hx Falls: Yes Hx Fractures: Yes (left patella) - GASTROINTESTINAL Hx Gastrointestinal Disorders: No - GENITOURINARY/GYNECOLOGICAL Hx Genitourinary Disorders: Yes - PSYCHIATRIC Hx Psychophysiologic Disorder: Yes Hx Depression: Yes (no longer) Hx Substance Use: No - SURGICAL HISTORY Hx Surgeries: Yes Hx Orthopedic Surgery: Yes (left knee) - ANESTHESIA Hx Anesthesia: Yes Hx Anesthesia Reactions: No Hx Malignant Hyperthermia: No Has any member of the family had a problem w/ anesthesia?: No Meds Allergies/Adverse Reactions: Allergies Allergy/AdvReac Type Severity Reaction Status Date / Time No Known Allergies Allergy Verified 05/11/15 13:24 - Medications Medications: Current Medications Acetaminophen (Tylenol 325mg Tab) 650 mg PO Q6 PRN PRN Reason: Pain, Mild (1-3) Camphor/Menthol (Bengay) 1 applic TOP QID PRN PRN Reason: Pain, Mild (1-3) Last Admin: 10/03/17 16:40 Dose: 1 applic Cyclobenzaprine HCl (Flexeril) 10 mg PO 0500,1300,2100 [facility] Last Admin: 10/04/17 14:15 Dose: 10 mg Docusate Sodium (Colace) 100 mg PO BID [facility] Enoxaparin Sodium (Lovenox) 40 mg SC DAILY [facility] PRN Reason: Protocol Gabapentin (Neurontin) 300 mg PO BID [facility] Last Admin: 10/04/17 16:34 Dose: 300 mg Hydromorphone HCl (Dilaudid) 0.5 mg IVP Q4 PRN PRN Reason: Pain, severe (8-10) Ketorolac Tromethamine (Toradol) 60 mg IM ONCE ONE Stop: 10/04/17 17:23 Lidocaine (Lidoderm) 1 ea TD DAILY [facility] Last Admin: 10/04/17 13:50 Dose: 1 ea Lisinopril (Zestril) 5 mg PO DAILY [facility] Oxycodone/Acetaminophen (Percocet 5/325 Mg Tab) 2 tab PO Q4 PRN PRN Reason: Pain, moderate (4-7) Stop: 10/06/17 12:33 Last Admin: 10/04/17 14:13 Dose: 2 tab Polyethylene Glycol (Miralax) 17 gm PO Q6H PRN PRN Reason: Constipation Last Admin: 10/03/17 09:05 Dose: 17 gm Prednisone (Prednisone Tab) 60 mg PO Q24H [facility] Stop: 10/05/17 17:31 Prednisone (Prednisone Tab) 50 mg PO Q24H [facility] Stop: 10/07/17 17:23 Prednisone (Prednisone Tab) 40 mg PO Q24H [facility] Stop: 10/09/17 17:23 Prednisone (Prednisone Tab) 30 mg PO Q24H [facility] Stop: 10/11/17 17:23 Prednisone (Prednisone Tab) 20 mg PO Q24H [facility] Stop: 10/13/17 17:23 Prednisone (Prednisone Tab) 10 mg PO Q24H [facility] Stop: 10/15/17 17:23 Results - Vital Signs Recent Vital Signs: Last Vital Signs Temp 97.9 F 10/04/17 16:40 Pulse 105 H 10/04/17 16:40 Resp 19 10/04/17 16:40 BP 115/71 10/04/17 16:40 Pulse Ox 95 10/04/17 16:40 - Labs Result Diagrams: 09/28/17 18:22 09/28/17 18:22
[2017-10-05 00:18] VITALS: O2SAT 93
[2017-10-05] MEDS: HYDROmorphone 0.5 mg/0.5 ml ISec IVP PRN ×2 (02:59→08:47)
[2017-10-05] MEDS: Oxycodone/Acetaminophen 5/325 mg Tab PO PRN ×2 (05:47→15:13)
[2017-10-05 07:53] VITALS: RESP 20; TEMP 97.5
[2017-10-05] MEDS ORDERED: Enoxaparin 40 mg Syringe SC SCH (09:00)
[2017-10-05 10:15] LABS: HEMATOCRIT 42.7 % (35.0-51.0); MEAN CELL VOLUME 91.2 fl (80.0-94.0); MEAN CORPUSCULAR HEMOGLOBIN 31.8 pg (27.0-31.0); MEAN CORPUSCULAR HGB CONC 34.9 g/dL (33.0-37.0); RED CELL DISTRIBUTION WIDTH 13.6 % (11.5-14.5); WHITE BLOOD COUNT 8.6 K/uL (4.8-10.8)
[2017-10-05] MEDS ORDERED: Metoprolol Succinate 25 mg XL Tab PO SCH (13:45)
--- NOTE | 2017-10-05 14:01 | CP.PCM.PN ---
Subjective - Date & Time of Evaluation Date of Evaluation: 10/05/17 Time of Evaluation: 13:59 - Subjective Subjective: Patient seen in room feels better today still with pain but much less decreased right radicular symptoms had a BM washed up lives with girlfriend can d/c home on continued steroid taper will need 50mgx2 days, 40mgx2 days 30 x2 20x2 and 10x[address] Dee aware of my opinion as well Objective - Vital Signs/Intake and Output Vital Signs (last 24 hours): Temp Pulse Resp BP Pulse Ox 97.5 F L 112 H 20 119/85 93 L 10/05/17 07:52 10/05/17 07:52 10/05/17 07:52 10/05/17 08:46 10/05/17 07:52 - Medications Medications: Current Medications Acetaminophen (Tylenol 325mg Tab) 650 mg PO Q6 PRN PRN Reason: Pain, Mild (1-3) Camphor/Menthol (Bengay) 1 applic TOP QID PRN PRN Reason: Pain, Mild (1-3) Last Admin: 10/03/17 16:40 Dose: 1 applic Cyclobenzaprine HCl (Flexeril) 10 mg PO 0500,1300,2100 [facility] Last Admin: 10/05/17 13:14 Dose: 10 mg Docusate Sodium (Colace) 100 mg PO BID [facility] Last Admin: 10/05/17 08:44 Dose: 100 mg Enoxaparin Sodium (Lovenox) 40 mg SC DAILY [facility] PRN Reason: Protocol Last Admin: 10/05/17 13:14 Dose: 40 mg Gabapentin (Neurontin) 300 mg PO BID [facility] Last Admin: 10/05/17 08:44 Dose: 300 mg Hydromorphone HCl (Dilaudid) 0.5 mg IVP Q4 PRN PRN Reason: Pain, severe (8-10) Last Admin: 10/05/17 08:47 Dose: 0.5 mg Lidocaine (Lidoderm) 1 ea TD DAILY [facility] Last Admin: 10/04/17 13:50 Dose: 1 ea Lisinopril (Zestril) 5 mg PO DAILY [facility] Last Admin: 10/05/17 08:46 Dose: 5 mg Metoprolol Succinate (Toprol Xl) 25 mg PO DAILY [facility] Oxycodone/Acetaminophen (Percocet 5/325 Mg Tab) 2 tab PO Q4 PRN PRN Reason: Pain, moderate (4-7) Stop: 10/06/17 12:33 Last Admin: 10/05/17 05:47 Dose: 2 tab Polyethylene Glycol (Miralax) 17 gm PO Q6H PRN PRN Reason: Constipation Last Admin: 10/03/17 09:05 Dose: 17 gm Prednisone (Prednisone Tab) 60 mg PO Q24H [facility] Stop: 10/05/17 17:31 Last Admin: 10/04/17 18:37 Dose: 60 mg Prednisone (Prednisone Tab) 50 mg PO Q24H [facility] Stop: 10/07/17 17:23 Prednisone (Prednisone Tab) 40 mg PO Q24H [facility] Stop: 10/09/17 17:23 Prednisone (Prednisone Tab) 30 mg PO Q24H [facility] Stop: 10/11/17 17:23 Prednisone (Prednisone Tab) 20 mg PO Q24H [facility] Stop: 10/13/17 17:23 Prednisone (Prednisone Tab) 10 mg PO Q24H [facility] Stop: 10/15/17 17:23 - Labs Labs: 10/05/17 09:30 09/28/17 18:22
[2017-10-05 15:14] VITALS: BP 133/83; PULSE 116
--- NOTE | 2017-10-05 15:59 | CP.PCM.DIS ---
<SolisCarenjen - Last Filed: 10/05/17 15:57> Provider - Provider Date of Admission: 09/29/17 16:34 Attending physician: Shahram Garcia MD Time Spent in preparation of Discharge (in minutes): 15 Hospital Course - Lab Results Lab Results: Most Recent Lab Values WBC 8.6 K/uL (4.8-10.8) 10/05/17 09:30 RBC 4.68 Mil/uL (4.40-5.90) 10/05/17 09:30 Hgb 14.9 g/dL (12.0-18.0) 10/05/17 09:30 Hct 42.7 % (35.0-51.0) 10/05/17 09:30 MCV 91.2 fl (80.0-94.0) 10/05/17 09:30 MCH 31.8 pg (27.0-31.0) H 10/05/17 09:30 MCHC 34.9 g/dL (33.0-37.0) 10/05/17 09:30 RDW 13.6 % (11.5-14.5) 10/05/17 09:30 Plt Count 302 K/uL (130-400) 10/05/17 09:30 MPV 6.8 fl (7.2-11.7) L 09/28/17 18:22 Neut % (Auto) 70.6 % (50.0-75.0) 09/28/17 18:22 Lymph % (Auto) 21.0 % (20.0-40.0) 09/28/17 18:22 [place] % (Auto) 5.4 % (0.0-10.0) 09/28/17 18:22 Eos % (Auto) 1.8 % (0.0-4.0) 09/28/17 18:22 Baso % (Auto) 1.2 % (0.0-2.0) 09/28/17 18:22 Neut # 4.2 K/uL (1.8-7.0) 09/28/17 18:22 Lymph # 1.3 K/uL (1.0-4.3) 09/28/17 18:22 [place] # 0.3 K/uL (0.0-0.8) 09/28/17 18:22 Eos # 0.1 K/uL (0.0-0.7) 09/28/17 18:22 Baso # 0.1 K/uL (0.0-0.2) 09/28/17 18:22 Sodium 143 mmol/l (132-148) 09/28/17 18:22 Potassium 3.8 MMOL/L (3.6-5.0) 09/28/17 18:22 Chloride 107 mmol/L (98-107) 09/28/17 18:22 Carbon Dioxide 27 mmol/L (22-30) 09/28/17 18:22 Anion Gap 13 (10-20) 09/28/17 18:22 BUN 16 mg/dl (9-20) 09/28/17 18:22 Creatinine 1.0 mg/dL (0.8-1.5) 09/28/17 18:22 Est GFR ( Amer) > 60 09/28/17 18:22 Est GFR (Non-Af Amer) > 60 09/28/17 18:22 Random Glucose 94 mg/dL (75-110) 09/28/17 18:22 Calcium 8.8 mg/dL (8.4-10.2) 09/28/17 18:22 - Hospital Course Hospital Course: 47 year old male PMHx sarcoidosis and herniated discs/sciatica presented to [facility] ED with intractable back pain, which began after lifting his father's casket. Patient unable to ambulate 2/[address] lumbar spine was obtained which revealed no acute pathology. Lumbar spine MRI reveals broad- based central disc protrusion indents the ventral thecal sac without central spinal canal stenosis. 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 Pt was seen by neurosurgery however stated no surgical intervention was warranted. During patient's hospital course he was found to have increased BP and tachycardia - home Rx for Lisinopril and Toprol given to patient. Patient was seen by physiatry who recommended an oral steroid taper and was given an initial injection of Toradol 60mg. Patient will be sent home with 5 day supply of percocet. Patient will be d/c WBAT with the assistance of a walker. Discharge Exam - Head Exam Head Exam: ATRAUMATIC, NORMAL INSPECTION, NORMOCEPHALIC - Eye Exam Eye Exam: EOMI, Normal appearance, PERRL Pupil Exam: NORMAL ACCOMODATION - ENT Exam ENT Exam: Mucous Membranes Moist, Normal Exam, Normal External Ear Exam - Neck Exam Neck exam: Full Rom, Normal Inspection - Respiratory Exam Respiratory Exam: Clear to PA & Lateral, NORMAL BREATHING PATTERN, UNREMARKABLE. absent: Rales, Rhonchi, Wheezes - Cardiovascular Exam Cardiovascular Exam: REGULAR RHYTHM, +S1, +S2. absent: Diastolic murmur, Gallop , Systolic Murmur - GI/Abdominal Exam GI & Abdominal Exam: Normal Bowel Sounds, Unremarkable. absent: Tenderness - Rectal Exam Rectal Exam: Deferred - Extremities Exam Extremities exam: normal capillary refill, pedal pulses present Additional comments: Extreme tenderness in right gluteal area eliciting sciatica pain. Bilateral lower extremity temperature gradient warm to cool. Capillary fill time to digits WNL x5 b/l - Neurological Exam Neurological exam: Abnormal Gait (Unable to ambulate steadily), Alert, Oriented x3 - Psychiatric Exam Psychiatric exam: Normal Affect, Normal Mood - Skin Skin Exam: Dry, Intact, Normal Color, Warm Discharge Plan - Discharge Medications Prescriptions: Cyclobenzaprine [Flexeril] 10 mg PO 0500,1300,2100 #90 tab Docusate [Colace] 100 mg PO BID #60 cap Gabapentin [Neurontin] 300 mg PO BID #60 cap Lidocaine 5% [Lidoderm] 1 ea TD DAILY #30 patch Lisinopril [Zestril] 5 mg PO DAILY #30 tab Menthol/Methyl Salicylate [BenGay] 1 applic TOP QID PRN #1 tube PRN Reason: Pain, Mild (1-3) Metoprolol Succinate [Toprol XL] 25 mg PO DAILY #30 tab Polyethylene Glycol 3350 [Miralax] 17 gm PO Q6H PRN #30 packet PRN Reason: Constipation predniSONE [predniSONE Tab] 10 mg PO Q24H #2 tab predniSONE [predniSONE Tab] 30 mg PO Q24H #2 tab predniSONE [predniSONE Tab] 50 mg PO Q24H #2 tab predniSONE [predniSONE Tab] 20 mg PO Q24H #2 tab predniSONE [predniSONE Tab] 40 mg PO Q24H #2 tab predniSONE [predniSONE Tab] 60 mg PO Q24H #2 tab - Follow Up Plan Condition: FAIR Disposition: HOME/ ROUTINE Patient education suggested?: Yes Instructions: Acute Low Back Pain (DC) Additional Instructions: follow up with your primary MD 7-10 days Referrals: Ariadna Moreland MD [Medical Doctor] - Lester Morales MD [Staff Provider] - Rojelio Gonsales MD [Staff Provider] - Wilmer Valencia MD [Staff Provider] - <Cary Dee - Last Filed: 10/05/17 17:59> Provider - Provider Date of Admission: 09/29/17 16:34 Attending physician: Shahram Garcia MD Hospital Course - Lab Results Lab Results: Most Recent Lab Values WBC 8.6 K/uL (4.8-10.8) 10/05/17 09:30 RBC 4.68 Mil/uL (4.40-5.90) 10/05/17 09:30 Hgb 14.9 g/dL (12.0-18.0) 10/05/17 09:30 Hct 42.7 % (35.0-51.0) 10/05/17 09:30 MCV 91.2 fl (80.0-94.0) 10/05/17 09:30 MCH 31.8 pg (27.0-31.0) H 10/05/17 09:30 MCHC 34.9 g/dL (33.0-37.0) 10/05/17 09:30 RDW 13.6 % (11.5-14.5) 10/05/17 09:30 Plt Count 302 K/uL (130-400) 10/05/17 09:30 MPV 6.8 fl (7.2-11.7) L 09/28/17 18:22 Neut % (Auto) 70.6 % (50.0-75.0) 09/28/17 18:22 Lymph % (Auto) 21.0 % (20.0-40.0) 09/28/17 18:22 [place] % (Auto) 5.4 % (0.0-10.0) 09/28/17 18:22 Eos % (Auto) 1.8 % (0.0-4.0) 09/28/17 18:22 Baso % (Auto) 1.2 % (0.0-2.0) 09/28/17 18:22 Neut # 4.2 K/uL (1.8-7.0) 09/28/17 18:22 Lymph # 1.3 K/uL (1.0-4.3) 09/28/17 18:22 [place] # 0.3 K/uL (0.0-0.8) 09/28/17 18:22 Eos # 0.1 K/uL (0.0-0.7) 09/28/17 18:22 Baso # 0.1 K/uL (0.0-0.2) 09/28/17 18:22 Sodium 143 mmol/l (132-148) 09/28/17 18:22 Potassium 3.8 MMOL/L (3.6-5.0) 09/28/17 18:22 Chloride 107 mmol/L (98-107) 09/28/17 18:22 Carbon Dioxide 27 mmol/L (22-30) 09/28/17 18:22 Anion Gap 13 (10-20) 09/28/17 18:22 BUN 16 mg/dl (9-20) 09/28/17 18:22 Creatinine 1.0 mg/dL (0.8-1.5) 09/28/17 18:22 Est GFR ( Amer) > 60 09/28/17 18:22 Est GFR (Non-Af Amer) > 60 09/28/17 18:22 Random Glucose 94 mg/dL (75-110) 09/28/17 18:22 Calcium 8.8 mg/dL (8.4-10.2) 09/28/17 18:22 - Hospital Course Hospital Course: patient will not be sent home with Percocet. Attending/Attestation - Attestation I have personally seen and examined this patient.: Yes I have fully participated in the care of the patient.: Yes I have reviewed all pertinent clinical information, including history, physical exam and plan: Yes Notes (Text): 10/05/17 17:59 Seen, examined, and discussed with Resident Dr. Ely. Agree with findings and plan as above.
[2017-10-05] MEDS: Lidocaine 5% Patch TD SCH (17:38)
== END 2017-10-05 18:20 | disposition home or self-care (01) | DRG 243 ==
LOC: H.ER 15:38 → H.ERHOLD 21:41 → H.MEDSURG1 23:04 → OBSVTOIN 09-29 16:34
PROVIDERS: ADMIT Internal Medicine; ATTEND Internal Medicine
PROC: 3E0234Z Introduction of Serum, Toxoid and Vaccine into Muscle, Percutaneous Approach (ICD-10-PCS; principal; 2017-09-29)
DX: M54.30 Sciatica, unspecified side (principal); D86.9 Sarcoidosis, unspecified; Z23 Encounter for immunization; K59.00 Constipation, unspecified; F32.9 Major depressive disorder, single episode, unspecified; R03.0 Elevated blood-pressure reading, without diagnosis of hypertension; R00.0 Tachycardia, unspecified; M51.26 Other intervertebral disc displacement, lumbar region

== ENCOUNTER 2017-12-15 16:13 | Observation (INO) | payer MEDICAID ==
[2017-12-15 16:14] VITALS: BMI 23.8
[2017-12-15] MEDS ORDERED: Sodium Chloride 0.9% 500 ML IV STA (16:33)
--- NOTE | 2017-12-15 16:35 | ED PDOC ---
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 with chest pain left side going into the left shoulder. Started suddenly after eating lunch. Then developed weakness all over. Legs got shaky. Got light-headed. No dyspnea, nausea, vomit, diarrhea, abd pain. No headache. Has depression and high chol. No leg pain. No long distance travel. No hormone tx. Past Medical History Reviewed: Nursing Documentation, Vital Signs Vital Signs: Last Vital Signs Temp 98.6 F 12/15/17 16:21 Pulse 90 12/15/17 16:21 Resp 16 12/15/17 16:21 BP 131/85 12/15/17 16:21 Pulse Ox 98 12/15/17 16:50 - Medical History PMH: Back Problems, Depression (no longer), Fractures (left patella), Gastrointestinal Ulcer, Hypercholesterolemia Denies: Chronic Kidney Disease - Surgical History Surgical History: Endoscopy - Family History Family History: States: Unknown Family Hx - Living Arrangements Living Arrangements: With Family - Social History Current smoker - smoking cessation education provided: No Alcohol: None Drugs: Denies - Immunization History Hx Tetanus Toxoid Vaccination: No Hx Influenza Vaccination: No Hx Pneumococcal Vaccination: No - Home Medications Home Medications: Ambulatory Orders Medication Instructions Recorded Cyclobenzaprine [Flexeril] 10 mg PO 0500,1300,2100 #90 tab 10/05/17 Docusate [Colace] 100 mg PO BID #60 cap 10/05/17 Gabapentin [Neurontin] 300 mg PO BID #60 cap 10/05/17 Lidocaine 5% [Lidoderm] 1 ea TD DAILY #30 patch 10/05/17 Lisinopril [Zestril] 5 mg PO DAILY #30 tab 10/05/17 Menthol/Methyl Salicylate [BenGay] 1 applic TOP QID PRN #1 tube 10/05/17 Metoprolol Succinate [Toprol XL] 25 mg PO DAILY #30 tab 10/05/17 Polyethylene Glycol 3350 [Miralax] 17 gm PO Q6H PRN #30 packet 10/05/17 predniSONE [predniSONE Tab] 10 mg PO Q24H #2 tab 10/05/17 predniSONE [predniSONE Tab] 20 mg PO Q24H #2 tab 10/05/17 predniSONE [predniSONE Tab] 30 mg PO Q24H #2 tab 10/05/17 predniSONE [predniSONE Tab] 40 mg PO Q24H #2 tab 10/05/17 predniSONE [predniSONE Tab] 50 mg PO Q24H #2 tab 10/05/17 predniSONE [predniSONE Tab] 60 mg PO Q24H #2 tab 10/05/17 - Allergies Allergies/Adverse Reactions: Allergies Allergy/AdvReac Type Severity Reaction Status Date / Time No Known Allergies Allergy Verified 12/15/17 16:21 Review of Systems ROS Statement: Except As Marked, All Systems Reviewed And Found Negative Constitutional: Positive for: Weakness Cardiovascular: Positive for: Chest Pain, Light Headedness Neurological: Positive for: Weakness, Dizziness Physical Exam - Reviewed Nursing Documentation Reviewed: Yes Vital Signs Reviewed: Yes - Physical Exam Appears: Positive for: Non-toxic, No Acute Distress Head Exam: Positive for: ATRAUMATIC, NORMAL INSPECTION, NORMOCEPHALIC Skin: Positive for: Normal Color, Warm, DRY Eye Exam: Positive for: EOMI, Normal appearance, PERRL ENT: Positive for: Normal ENT Inspection Neck: Positive for: Normal, Painless ROM, Supple Cardiovascular/Chest: Positive for: Regular Rate, Rhythm Respiratory: Positive for: CNT, Normal Breath Sounds Gastrointestinal/Abdominal: Positive for: Normal Exam, Bowel Sounds, Soft. Negative for: Tenderness Back: Positive for: Normal Inspection. Negative for: L CVA Tenderness, R CVA Tenderness Extremity: Positive for: Normal ROM. 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 Negative for: Motor/Sensory Deficits, Aphasia, Facial Droop - Laboratory Results Result Diagrams: 12/15/17 16:45 12/15/17 16:45 Interpretation Of Abn Labs: no acute - ECG ECG: Positive for: Interpreted By Me, Viewed By Me ECG Rhythm: Positive for: Normal QRS, Normal ST Segment, Sinus Rhythm O2 Sat by Pulse Oximetry: 98 Pulse Ox Interpretation: Normal - Radiology X-Ray: Read By Radiologist X-Ray Interpretation: No Acute Disease - Progress ED Course And Treament: 1904: Stable. AAOx3. Pain free. Spoke with Dr. Galvan. Will admit tele obs. Will give further orders when pt. reaches floor. Disposition - Clinical Impression Clinical Impression: Chest pain - Patient ED Disposition Is Patient to be Admitted: Yes Counseled Patient/Family Regarding: Studies Performed, Diagnosis - Disposition Disposition Time: 19:05 Condition: STABLE - Pt Status Changed To: Hospital Disposition Of: Observation - POA Present On Arrival: None Core Measure Indicators: Chest Pain
[2017-12-15 16:53] LABS: BASO # 0.1 K/uL (0.0-0.2); BASO % 1.9 % (0.0-2.0); EOS # 0.1 K/uL (0.0-0.7); EOS % 2.7 % (0.0-4.0); HEMOGLOBIN 14.7 g/dL (12.0-18.0); LYMPH # 1.6 K/uL (1.0-4.3); LYMPH % 29.3 % (20.0-40.0); MEAN CELL VOLUME 94.4 fl (80.0-94.0); MEAN CORPUSCULAR HEMOGLOBIN 31.7 pg (27.0-31.0); MEAN CORPUSCULAR HGB CONC 33.6 g/dL (33.0-37.0); MEAN PLATELET VOLUME 7.1 fl (7.2-11.7); MONO # 0.3 K/uL (0.0-0.8); MONO % 5.5 % (0.0-10.0); NEUT # 3.3 K/uL (1.8-7.0); NEUT % 60.6 % (50.0-75.0); NRBC % 0.3 % (0.0-0.0); RBC 4.63 Mil/uL (4.40-5.90); WHITE BLOOD COUNT 5.4 K/uL (4.8-10.8)
--- NOTE | 2017-12-15 17:24 | RAD ---
HISTORY: dyspnea COMPARISON: No prior. FINDINGS: LUNGS: Minimal linear scar/atelectasis at right base. No infiltrate. PLEURA: No significant pleural effusion identified, no pneumothorax apparent. CARDIOVASCULAR: Normal. OSSEOUS STRUCTURES: No significant abnormalities. VISUALIZED UPPER ABDOMEN: Normal. OTHER FINDINGS: None. IMPRESSION: No active disease.
[2017-12-15 17:27] LABS: PARTIAL THROMBOPLASTIN TIME 37.4 Seconds (25.6-37.1); PROTHROMBIN TIME 11.6 Seconds (9.8-13.1)
[2017-12-15 17:31] LABS: ALB/GLOB RATIO 1.4 (1.0-2.1); ALBUMIN 4.5 g/dL (3.5-5.0); ALT/SGPT 31 U/L (21-72); AST/SGOT 23 U/L (17-59); BLOOD UREA NITROGEN 16 mg/dl (9-20); CALCIUM 9.6 mg/dL (8.4-10.2); GFR AFRICAN-AMERICAN > 60; GFR NON-AFRICAN AMERICAN > 60
[2017-12-15 17:44] LABS: BARBITURATES, UR NEGATIVE (NEGATIVE); BENZODIAZEPINES, UR NEGATIVE (NEGATIVE); OPIATES, UR NEGATIVE (NEGATIVE); PHENCYCLIDINE, UR NEGATIVE (NEGATIVE)
[2017-12-16 05:56] LABS: HEMOGLOBIN 13.3 g/dL (12.0-18.0); MEAN CELL VOLUME 94.4 fl (80.0-94.0); MEAN CORPUSCULAR HEMOGLOBIN 31.7 pg (27.0-31.0); MEAN CORPUSCULAR HGB CONC 33.6 g/dL (33.0-37.0); RBC 4.19 Mil/uL (4.40-5.90); RED CELL DISTRIBUTION WIDTH 13.4 % (11.5-14.5); WHITE BLOOD COUNT 4.7 K/uL (4.8-10.8)
[2017-12-16 06:13] LABS: ALB/GLOB RATIO 1.2 (1.0-2.1); ALBUMIN 3.5 g/dL (3.5-5.0); ALT/SGPT 30 U/L (21-72); AST/SGOT 20 U/L (17-59); BLOOD UREA NITROGEN 12 mg/dl (9-20); CALCIUM 9.1 mg/dL (8.4-10.2); GFR AFRICAN-AMERICAN > 60; GFR NON-AFRICAN AMERICAN > 60; HDL CHOLESTEROL 57 MG/DL (30-70)
[2017-12-16 06:26] LABS: LDL CHOLESTEROL 85 mg/dL (0-129)
[2017-12-16 06:29] LABS: T4 7.35 ug/dl (5.5-11.0)
[2017-12-16] MEDS: Enoxaparin 40 mg Syringe SC SCH (09:07)
[2017-12-16] MEDS ORDERED: Potassium Chloride 20 mEq ER Tab PO ONE (12:47)
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
[2017-12-16] MEDS ORDERED: Nitroglycerin 2% Ointment Foilpak UD TOP SCH ×4 (16:00)
[2017-12-16] MEDS: Nitroglycerin 2% Ointment Foilpak UD TOP SCH ×2 (17:26→21:26)
--- NOTE | 2017-12-16 19:44 | CARD ---
APPROVED REPORT EXAM: Two-dimensional and M-mode echocardiogram with Doppler and color Doppler. Other Information Quality : GoodRhythm : NSR INDICATION Chest Pain 2D DIMENSIONS IVSd1.06 (0.7-1.1cm)LVDd4.14 (3.9-5.9cm) LVOT Diameter2.47 (1.8-2.4cm)PWd0.63 (0.7-1.1cm) IVSs1.27 (0.8-1.2cm)LVDs2.73 (2.5-4.0cm) FS (%) 34.1 %PWs1.03 (0.8-1.2cm) M-Mode DIMENSIONS Left Atrium (MM)3.47 (2.5-4.0cm)Aortic Root3.62 (2.2-3.7cm) Aortic Cusp Exc.2.24 (1.5-2.0cm) Mitral Valve MV E Fohrlfpf71.0cm/sMV DECEL [id number] A Hevhbpie51.5cm/s MV [id number]/A ratio1.4MVA (PHT)2.54cm2 TDI Lateral E' Peak V14.01cm/sMedial E' Peak V11.08cm/sE/Lateral E'3.3 E/Medial E'4.2 Pulmonary Valve PV Peak Bmecybbi13.9cm/s LEFT VENTRICLE The left ventricle is normal size. There is normal left ventricular wall thickness. The left ventricular function is normal. The left ventricular ejection fraction is 60% There is normal LV segmental wall motion. The left ventricular diastolic function is normal. No left ventricle thrombus noted on this study. There is no ventricular septal defect visualized. There is no left ventricular aneurysm. There is no mass noted in the left ventricle. RIGHT VENTRICLE The right ventricle is normal size. There is normal right ventricular wall thickness. The right ventricular systolic function is normal. ATRIA The left atrium size is normal. The right atrium size is normal. The interatrial septum is intact with no evidence for an atrial septal defect. AORTIC VALVE The aortic valve is normal in structure. No aortic regurgitation is present. There is no aortic valvular stenosis. There is no aortic valvular vegetation. MITRAL VALVE The mitral valve is normal in structure. There is no evidence of mitral valve prolapse. There is no mitral valve stenosis. There is no mitral valve regurgitation noted. TRICUSPID VALVE The tricuspid valve is normal in structure. There is no tricuspid valve regurgitation noted. There is no tricuspid valve prolapse or vegetation. There is no tricuspid valve stenosis. PULMONIC VALVE The pulmonary valve is normal in structure. There is no pulmonic valvular regurgitation. There is no pulmonic valvular stenosis. GREAT VESSELS The aortic root is normal in size. The ascending aorta is normal in size. The IVC is normal in size and collapses >50% with inspiration. PERICARDIAL EFFUSION The pericardium appears normal. There is no pleural effusion. <Conclusion> Normal Echocardiogram
--- NOTE | 2017-12-17 02:07 | CT ---
EXAM: CT Head Without Intravenous Contrast CLINICAL HISTORY: 47 years old, male; Signs and symptoms; Dizziness and other: Lightheadedness TECHNIQUE: Axial computed tomography images of the head/brain without intravenous contrast. All CT scans at this facility use one or more dose reduction techniques, viz.: automated exposure control; ma/kV adjustment per patient size (including targeted exams where dose is matched to indication; i.e. head); or iterative reconstruction technique. 283 images are submitted. Coronal and sagittal reformatted images were created and reviewed. COMPARISON: No relevant prior studies available. FINDINGS: Brain: Right cerebellar calcification. Minimal patchy hypodensity is seen in the periventricular cerebral white matter. No hemorrhage. Ventricles: Unremarkable. No ventriculomegaly. Bones/joints: Unremarkable. No acute fracture. Soft tissues: Unremarkable. Sinuses: Unremarkable. No acute sinusitis. Mastoid air cells: Unremarkable. No mastoid effusion. IMPRESSION: No evidence of an acute intracranial hemorrhage, midline shift or mass effect is identified.
[2017-12-17] MEDS: Nitroglycerin 2% Ointment Foilpak UD TOP SCH ×2 (04:55→09:29)
[2017-12-17 06:44] LABS: BLOOD UREA NITROGEN 14 mg/dl (9-20); CALCIUM 8.7 mg/dL (8.4-10.2); GFR AFRICAN-AMERICAN > 60; GFR NON-AFRICAN AMERICAN > 60
[2017-12-17 08:32] VITALS: O2SAT 97
--- NOTE | 2017-12-17 09:28 | CP.PCM.CON ---
History of Present Illness - History of Present Illness History of Present Illness: This 47- year-old man came to the emergency room complaining of a vague sense of chest discomfort in the left pectoral area quite unconnected to any physical activity. He denies prior history of hypertension or diabetes and denies effort- related chest discomfort. He denies being on any medications. Physical examination shows a young man who is alert awake coherent and afebrile and complaints of severe headaches after topical nitroglycerin was administered. His telemetry shows sinus rhythm at physiological rates. His heart rate now was 64 bpm and regular and his blood pressure was 130/70 mmHg. His jugular venous pressure was not elevated. There was no edema was noted extremities. The pedal pulses are well felt. There were no carotid bruits. The apex was in the fifth space and the first and second heart sound were normal there was no murmur and there were no gallop and there were no rales. His abdomen was soft liver and spleen are not palpable. His electrolytes are gram showed sinus rhythm with a normal EKG pattern. His echocardiogram was reviewed. The left ventricle was normal in size with normal wall motion.. There was no valvulopathy. The labs were noted. Troponin levels were normal indicating no evidence of myocyte injury. Impression: No evidence of acute coronary syndrome. The patient may be allowed to return home and be managed as an outpatient. Past Patient History - Past Medical History & Family History Past Medical History?: Yes - Past Social History Smoking Status: Former Smoker Alcohol: None Drugs: Denies - CARDIAC Hx Cardiac Disorders: Yes Hx Hypercholesterolemia: Yes Hx Hypertension: Yes - PULMONARY Hx Respiratory Disorders: Yes (sarcoidosis asymptomatic) - NEUROLOGICAL Hx Neurological Disorder: No - HEENT Hx HEENT Problems: No - RENAL Hx Chronic Kidney Disease: No - ENDOCRINE/METABOLIC Hx Endocrine Disorders: No - HEMATOLOGICAL/ONCOLOGICAL Hx Blood Disorders: No - INTEGUMENTARY Hx Dermatological Problems: No - MUSCULOSKELETAL/RHEUMATOLOGICAL Hx Musculoskeletal Disorders: Yes Hx Back Pain: Yes Hx Falls: No Hx Fractures: Yes (left patella) - GASTROINTESTINAL Hx Gastrointestinal Disorders: No - GENITOURINARY/GYNECOLOGICAL Hx Genitourinary Disorders: Yes - PSYCHIATRIC Hx Psychophysiologic Disorder: Yes Hx Depression: Yes (no longer) Hx Substance Use: No - SURGICAL HISTORY Hx Surgeries: Yes Hx Orthopedic Surgery: Yes (left knee) - ANESTHESIA Hx Anesthesia: Yes Hx Anesthesia Reactions: No Hx Malignant Hyperthermia: No Meds Allergies/Adverse Reactions: Allergies Allergy/AdvReac Type Severity Reaction Status Date / Time No Known Allergies Allergy Verified 12/15/17 16:21 - Medications Medications: Current Medications Acetaminophen (Tylenol 325mg Tab) 650 mg PO Q4 PRN PRN Reason: Headache Last Admin: 12/16/17 11:45 Dose: 650 mg Amlodipine Besylate (Norvasc) 10 mg PO DAILY [facility] Last Admin: 12/16/17 09:07 Dose: 10 mg Aspirin (Aspirin) 325 mg PO DAILY [facility] Last Admin: 12/16/17 09:05 Dose: 325 mg Enoxaparin Sodium (Lovenox) 40 mg SC DAILY [facility] PRN Reason: Protocol Last Admin: 12/16/17 09:07 Dose: 40 mg Famotidine (Pepcid) 20 mg PO BID [facility] Last Admin: 12/16/17 17:23 Dose: 20 mg Lisinopril (Zestril) 5 mg PO DAILY [facility] Last Admin: 12/16/17 09:05 Dose: Not Given Nitroglycerin (Nitro-Bid 2% Oint) 1 ea TOP Q6 [facility] Last Admin: 12/17/17 04:55 Dose: Not Given Quetiapine Fumarate (Seroquel) 100 mg PO HS [facility] Last Admin: 12/16/17 21:27 Dose: 100 mg Sertraline HCl (Zoloft) 50 mg PO DAILY [facility] Last Admin: 12/16/17 09:06 Dose: 50 mg Results - Vital Signs Recent Vital Signs: Last Vital Signs Temp 98.2 F 12/17/17 08:37 Pulse 60 12/17/17 08:37 Resp 18 12/17/17 08:37 BP 93/54 L 12/17/17 08:37 Pulse Ox 97 12/17/17 08:37 - Labs Result Diagrams: 12/16/17 05:00 12/17/17 05:35 Labs: Laboratory Results - last 24 hr 12/17/17 05:35 Sodium 141 Potassium 3.7 Chloride 103 Carbon Dioxide 29 Anion Gap 13 BUN 14 Creatinine 1.1 Est GFR ( Amer) > 60 Est GFR (Non-Af Amer) > 60 Random Glucose 87 Calcium 8.7
[2017-12-17] MEDS: Enoxaparin 40 mg Syringe SC SCH (09:30)
[2017-12-17 12:52] VITALS: BP 105/69; PULSE 79
[2017-12-17 13:03] VITALS: RESP 20; TEMP 98.3
--- NOTE | 2017-12-17 17:23 | CP.PCM.DIS ---
Provider - Provider Date of Admission: 12/15/17 19:06 Attending physician: Conner Galvan MD Diagnosis - Discharge Diagnosis (1) Chest pain Status: Acute Priority: High (2) Dizziness Status: Acute Priority: High (3) HTN (hypertension) Status: Chronic Priority: Medium (4) Depression Status: Chronic Priority: Medium (5) Hx of sarcoidosis Status: Chronic Priority: Medium Hospital Course - Lab Results Lab Results: Most Recent Lab Values WBC 4.7 K/uL (4.8-10.8) L 12/16/17 05:00 RBC 4.19 Mil/uL (4.40-5.90) L 12/16/17 05:00 Hgb 13.3 g/dL (12.0-18.0) 12/16/17 05:00 Hct 39.5 % (35.0-51.0) 12/16/17 05:00 MCV 94.4 fl (80.0-94.0) H 12/16/17 05:00 MCH 31.7 pg (27.0-31.0) H 12/16/17 05:00 MCHC 33.6 g/dL (33.0-37.0) 12/16/17 05:00 RDW 13.4 % (11.5-14.5) 12/16/17 05:00 Plt Count 224 K/uL (130-400) 12/16/17 05:00 MPV 7.1 fl (7.2-11.7) L 12/15/17 16:45 Neut % (Auto) 60.6 % (50.0-75.0) 12/15/17 16:45 Lymph % (Auto) 29.3 % (20.0-40.0) 12/15/17 16:45 [place] % (Auto) 5.5 % (0.0-10.0) 12/15/17 16:45 Eos % (Auto) 2.7 % (0.0-4.0) 12/15/17 16:45 Baso % (Auto) 1.9 % (0.0-2.0) 12/15/17 16:45 Neut # 3.3 K/uL (1.8-7.0) 12/15/17 16:45 Lymph # 1.6 K/uL (1.0-4.3) 12/15/17 16:45 [place] # 0.3 K/uL (0.0-0.8) 12/15/17 16:45 Eos # 0.1 K/uL (0.0-0.7) 12/15/17 16:45 Baso # 0.1 K/uL (0.0-0.2) 12/15/17 16:45 PT 11.6 Seconds (9.8-13.1) 12/15/17 16:45 INR 1.0 (0.9-1.2) 12/15/17 16:45 APTT 37.4 Seconds (25.6-37.1) H 12/15/17 16:45 Sodium 141 mmol/l (132-148) 12/17/17 05:35 Potassium 3.7 MMOL/L (3.6-5.0) 12/17/17 05:35 Chloride 103 mmol/L (98-107) 12/17/17 05:35 Carbon Dioxide 29 mmol/L (22-30) 12/17/17 05:35 Anion Gap 13 (10-20) 12/17/17 05:35 BUN 14 mg/dl (9-20) 12/17/17 05:35 Creatinine 1.1 mg/dl (0.8-1.5) 12/17/17 05:35 Est GFR ( Amer) > 60 12/17/17 05:35 Est GFR (Non-Af Amer) > 60 12/17/17 05:35 Random Glucose 87 mg/dL (75-110) 12/17/17 05:35 Calcium 8.7 mg/dL (8.4-10.2) 12/17/17 05:35 Total Bilirubin 0.3 mg/dl (0.2-1.3) 12/16/17 05:00 AST 20 U/L (17-59) 12/16/17 05:00 ALT 30 U/L (21-72) 12/16/17 05:00 Alkaline Phosphatase 56 U/L (38-126) 12/16/17 05:00 Troponin I < 0.0120 ng/mL (0.00-0.120) 12/16/17 08:30 Total Protein 6.4 G/DL (6.3-8.2) 12/16/17 05:00 Albumin 3.5 g/dL (3.5-5.0) D 12/16/17 05:00 Globulin 2.9 gm/dL (2.2-3.9) 12/16/17 05:00 Albumin/Globulin Ratio 1.2 (1.0-2.1) 12/16/17 05:00 Triglycerides 92 mg/DL (0-149) 12/16/17 05:00 Cholesterol 170 mg/dL (0-199) 12/16/17 05:00 LDL Cholesterol Direct 85 mg/dL (0-129) 12/16/17 05:00 HDL Cholesterol 57 MG/DL (30-70) 12/16/17 05:00 Thyroxine (T4) 7.35 ug/dl (5.5-11.0) 12/16/17 05:00 TSH 3rd Generation 3.17 mIU/ML (0.46-4.68) 12/16/17 05:00 Urine Opiates Screen Negative (NEGATIVE) 12/15/17 17:00 Urine Methadone Screen Negative (NEGATIVE) 12/15/17 17:00 Ur Barbiturates Screen Negative (NEGATIVE) 12/15/17 17:00 Ur Phencyclidine Scrn Negative (NEGATIVE) 12/15/17 17:00 Ur Amphetamines Screen Negative (NEGATIVE) 12/15/17 17:00 U Benzodiazepines Scrn Negative (NEGATIVE) 12/15/17 17:00 U Oth Cocaine Metabols Negative (NEGATIVE) 12/15/17 17:00 U Cannabinoids Screen Negative (NEGATIVE) 12/15/17 17:00 Alcohol, Quantitative < 10 mg/dl (0-10) 12/15/17 16:45 Discharge Exam - Head Exam Head Exam: NORMAL INSPECTION Discharge Plan - Discharge Medications Prescriptions: Lisinopril 2.5 mg PO DAILY #30 tablet - Follow Up Plan Condition: STABLE Disposition: HOME/ ROUTINE Instructions: Chest Pain (DC), Depression (DC) Additional Instructions: patient cleared for discharge to Home today by Dr. Galvan and pt. instructed to hold Norvasc and f/u with pmd Lisinopril dose decreased to 2.5 mg po daily pt. will f/u with pmd and psychiatrist outpatient Referrals: Bryan Rojas MD [Staff Provider] - Conner Galvan MD [Staff Provider] - Ariadna Moreland MD [Family Provider] -
--- NOTE | 2017-12-17 18:32 | CARD ---
APPROVED REPORT EKG Measurement Heart [id number] <Conclusion> Normal sinus rhythm Incomplete right bundle branch block Borderline ECG
== END 2017-12-17 14:46 | disposition home or self-care (01) ==
LOC: H.ER 16:13 → H.ERHOLD 19:06 → H.TEL 21:31 → INTOOBSV 12-16 15:18 → OBSVTOIN 12-16 15:18
PROVIDERS: ADMIT Internal Medicine Pulmonary Disease; ATTEND Internal Medicine Pulmonary Disease
DX: R07.89 Other chest pain (principal); I10 Essential (primary) hypertension; I25.10 Atherosclerotic heart disease of native coronary artery without angina pectoris; Z87.11 Personal history of peptic ulcer disease; M54.30 Sciatica, unspecified side; Z87.891 Personal history of nicotine dependence; F45.9 Somatoform disorder, unspecified; M54.9 Dorsalgia, unspecified; D86.9 Sarcoidosis, unspecified; E78.00 Pure hypercholesterolemia, unspecified; F32.9 Major depressive disorder, single episode, unspecified; R42 Dizziness and giddiness
CPT/HCPCS: 36415; 70450; 71045; 80048; 80053; 80061; 80320; 80324; 80345; 80346; 80349; 80353; 80358; 80361; 83992; 84436; 84443; 84484; 85025; 85027; 85610; 85730; 93005; 93306; 99284; G0378; J1650; J7040

== ENCOUNTER 2017-12-26 01:58 | Emergency (ER) | payer MEDICAID ==
[2017-12-26 01:59] VITALS: BMI 23.8
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
[2017-12-26] MEDS ORDERED: Tobramycin 0.3% OPHT SOLN OS ONE (05:06)
[2017-12-26] MEDS ORDERED: Tobramycin 0.3% OPHT SOLN OD ONE (05:27)
[2017-12-26 06:40] LABS: BASO # 0.1 K/uL (0.0-0.2); EOS # 0.1 K/uL (0.0-0.7); EOS % 0.9 % (0.0-4.0); HEMOGLOBIN 13.6 g/dL (12.0-18.0); LYMPH % 18.3 % (20.0-40.0); MEAN CELL VOLUME 91.8 fl (80.0-94.0); MEAN CORPUSCULAR HEMOGLOBIN 31.8 pg (27.0-31.0); MEAN CORPUSCULAR HGB CONC 34.6 g/dL (33.0-37.0); MEAN PLATELET VOLUME 6.9 fl (7.2-11.7); MONO # 0.3 K/uL (0.0-0.8); MONO % 4.7 % (0.0-10.0); NEUT # 4.3 K/uL (1.8-7.0); NEUT % 75.1 % (50.0-75.0); RBC 4.28 Mil/uL (4.40-5.90); RED CELL DISTRIBUTION WIDTH 13.5 % (11.5-14.5); WHITE BLOOD COUNT 5.7 K/uL (4.8-10.8)
[2017-12-26 06:49] LABS: ALB/GLOB RATIO 1.4 (1.0-2.1); ALBUMIN 4.1 g/dL (3.5-5.0); ALT/SGPT 30 U/L (21-72); AST/SGOT 23 U/L (17-59); BLOOD UREA NITROGEN 12 mg/dl (9-20); CALCIUM 9.1 mg/dL (8.4-10.2); GFR AFRICAN-AMERICAN > 60; GFR NON-AFRICAN AMERICAN > 60
[2017-12-26 06:51] LABS: BARBITURATES, UR NEGATIVE (NEGATIVE); BENZODIAZEPINES, UR NEGATIVE (NEGATIVE); OPIATES, UR NEGATIVE (NEGATIVE); PHENCYCLIDINE, UR NEGATIVE (NEGATIVE)
[2017-12-26 07:01] LABS: URINE COLOR COLORLESS (YELLOW)
[2017-12-26 07:02] LABS: URINE BILIRUBIN NEGATIVE (NEGATIVE); URINE CLARITY Clear (Clear); URINE GLUCOSE (UA) NEGATIVE (Normal)
[2017-12-26 07:03] LABS: PH,URINE 6.5 (5.0-8.0); URINE BLOOD NEGATIVE (NEGATIVE); URINE LEUKOCYTE ESTERASE NEGATIVE Leu/uL (Negative); URINE NITRATE NEGATIVE (NEGATIVE); URINE PROTEIN NEGATIVE (NEGATIVE); URINE UROBILINOGEN 0.2 mg/dL (0.2-1.0)
[2017-12-26 07:41] VITALS: BP 141/87; PULSE 89; RESP 16; TEMP 98.2; O2SAT 97
--- NOTE | 2017-12-26 08:18 | ED PDOC ---
- Laboratory Results Result Diagrams: 12/26/17 06:37 12/26/17 06:37 - ECG O2 Sat by Pulse Oximetry: 97 (RA) Medical Decision Making Medical Decision Making: Time: 7:00 --Patient signed out to me by Dr. Martha Matamoros pending crisis evaluation. Time: 8:00 --Crisis saw patient who complains of suicidal ideation. Case discussed with Dr. Marr who requests reevaluation in 2 hours to see if symptoms persist. Scribe Attestation: Documented by Bong Gregory, acting as a scribe for Kyra Alves MD Provider Scribe Attestation: All medical record entries made by the Scribe were at my direction and personally dictated by me. I have reviewed the chart and agree that the record accurately reflects my personal performance of the history, physical exam, medical decision making, and the department course for this patient. I have also personally directed, reviewed, and agree with the discharge instructions and disposition. 9.45a - patient re-evaluated by 2nd [employer]. Patient no longer claims to be suicidal. Disposition Doctor Will See Patient In The: Office - Clinical Impression Clinical Impression: Corneal abrasion, Facial contusion, Multiple abrasions - POA Present On Arrival: Falls Or Trauma - Disposition Referrals: Arley Mathis MD [Staff Provider] - Disposition: Routine/Home Disposition Time: 09:45 Condition: FAIR Prescriptions: Tobramycin 0.3% [Tobrex 0.3% Ophth Soln] 1 drop OS QID #1 bottle Instructions: Corneal Abrasion (ED), Stress (ED), Contusion in Adults (ED) Forms: [employer] (Welsh)
== END 2017-12-26 10:45 | disposition home or self-care (01) ==
LOC: H.ER 01:58
DX: S00.83XA Contusion of other part of head, initial encounter (principal); S05.01XA Injury of conjunctiva and corneal abrasion without foreign body, right eye, initial encounter; S10.91XA Abrasion of unspecified part of neck, initial encounter; S00.81XA Abrasion of other part of head, initial encounter; Y04.0XXA Assault by unarmed brawl or fight, initial encounter; I10 Essential (primary) hypertension; D86.9 Sarcoidosis, unspecified